=== PATIENT | female | born 1955 | race African-American/Black ===

== ENCOUNTER → 2018-06-23 | Outpatient (CLI) | payer MEDICARE, MEDICAID ==
[~2018-06-23] MED LIST: ALPR0.25 PO; AMLODIPINE PO; DIPH1TAB PO; HYDR2TAB4 PO; MORP15TA67 PO; MORP30TA66 PO; MOUTHWASH PO; OMEP20CA10 PO; ONDA8TAB6 PO; PROC10TA13 PO; RANI150T7 PO; VITAMIN D2 PO; ZOLP10TA6 PO; ZOLPIDEM PO; [UNRECOGNIZED DRUG - OTHER] PO
== END | disposition home or self-care (01) ==
LOC: RAD 12:25
PROVIDERS: ATTEND Specialist
DX: I26.99 Other pulmonary embolism without acute cor pulmonale (principal)
CPT/HCPCS: 71046

== ENCOUNTER → 2019-06-13 | Outpatient (CLI) | payer MEDICARE, MEDICAID ==
[~2019-06-13] MED LIST changes: -OMEP20CA10 PO; +OMEP20CA5 PO
== END | disposition home or self-care (01) ==
LOC: RAD 10:15
PROVIDERS: ATTEND Specialist
DX: J44.9 Chronic obstructive pulmonary disease, unspecified (principal); M48.54XA Collapsed vertebra, not elsewhere classified, thoracic region, initial encounter for fracture
CPT/HCPCS: 71046

== ENCOUNTER 2019-10-26 06:45 | Inpatient (IN) | payer MEDICARE, MEDICAID ==
[~2019-10-26] VITALS: Ht 160 cm; Wt 65.3 kg
[2019-10-26] VITALS (30 sets, daily range): BP systolic 110–147; BP diastolic 59–91
[~2019-10-26 06:45] MED LIST changes: +OMEP20CA14 PO; -OMEP20CA5 PO
[2019-10-26 07:11] LABS: BASOPHILS % 1.2 % (0.0-2.0); EOSINOPHILS % 1.1 % (0.0-5.0); HEMATOCRIT. 37.9 % (36.0-48.0); HEMOGLOBIN. 12.8 g/dL (12.0-16.0); LYMPHOCYTES % 34.3 % (20.0-50.0); MEAN CORPUSCULAR HEMOGLOBIN 35.7 pg (28.0-32.0); MEAN CORPUSCULAR VOLUME 106.2 fL (81.0-99.0); MEAN PLATELET VOLUME 8.6 fl (7.4-10.4); MONOCYTES % 8.2 % (2.0-8.0); NEUTROPHILS % 55.2 % (40.0-76.0); PLATELET 250 x1000/uL (130-400); RED BLOOD CELL COUNT 3.57 mill/uL (4.2-5.4); RED CELL DISTRIBUTION WIDTH 16.2 % (11.6-14.6)
[2019-10-26] MEDS ORDERED: DILTIAZEM HCL 125 MG in DEXT 5% WATER 100 ML IV ONE (07:30)
[2019-10-26] MEDS ORDERED: FUROSEMIDE 40MG/4ML VIAL IV ONE (07:30)
[2019-10-26] MEDS ORDERED: DILTIAZEM HCL 5MG/ML 5ML VIAL IV ONE (07:30)
[2019-10-26 08:11] LABS: CHLORIDE 112 mEq/L (98-107)
[2019-10-26] MEDS ORDERED: ASPIRIN 81MG TABLET PO ONE (09:00)
[2019-10-26] MEDS ORDERED: DIPHENHYDRAMINE 50MG/ML VIAL IV PRN (10:45)
[2019-10-26] MEDS ORDERED: ENOXAPARIN 40MG/0.4ML SYR SUBCUT SCH (10:45)
[2019-10-26] MEDS ORDERED: ONDANSETRON HCL 4MG/2ML INJ IV PRN (10:45)
[2019-10-26] MEDS ORDERED: IPRATROPIUM/ALBUTEROL 0.5-3(2.5)MG/3ML NEB NEB PRN (10:45)
[2019-10-26] MEDS ORDERED: HYDROCODONE/ACETAMINOPHEN 10/325MG TABLET PO PRN (10:45)
[2019-10-26] MEDS ORDERED: NA PHOS,M-B/NA PHOS,DI-BA ENEMA 118ML PR PRN (10:45)
[2019-10-26] MEDS ORDERED: DOCUSATE SODIUM 100MG CAPSULE PO PRN (10:45)
[2019-10-26] MEDS ORDERED: LORAZEPAM 2MG/ML CPJ IV PRN ×2 (10:45→13:15)
[2019-10-26] MEDS ORDERED: GUAIFENESIN 200MG/10ML SUGAR FREE UDC PO PRN (10:45)
[2019-10-26] MEDS ORDERED: MORPHINE SULFATE 2 MG/ML CPJ (NOT FOR IM USE) IV PRN (10:45)
[2019-10-26] MEDS ORDERED: CLONIDINE 0.1MG TABLET PO PRN (10:45)
[2019-10-26] MEDS ORDERED: HYDRALAZINE 20MG/ML VIAL IV PRN (10:45)
[2019-10-26] MEDS ORDERED: ACETAMINOPHEN 325MG TABLET PO PRN (10:45)
[2019-10-26] MEDS ORDERED: MAGNESIUM/ALUMINUM HYDROXIDE/SIMETHICONE 30ML UDC PO PRN (10:45)
[2019-10-26] MEDS: FUROSEMIDE 40MG/4ML VIAL IVP SCH ×2 (11:51→17:00)
[2019-10-26] MEDS: ENOXAPARIN 30MG/0.3ML SYR SUBCUT SCH (11:51)
[2019-10-26] MEDS: THIAMINE HCL 100MG TABLET PO SCH (13:30)
[2019-10-26] MEDS: SODIUM CHLORIDE 0.9% INJ 3ML FLUSH IVF SCH ×2 (14:36→22:24)
[2019-10-26] MEDS: MULTIVITAMINS,THER W-MINERALS TABLET PO SCH (14:44)
[2019-10-26] MEDS: FOLIC ACID 1MG TABLET PO SCH (14:44)
[2019-10-26] MEDS: CHLORDIAZEPOXIDE 5 MG CAPSULE PO SCH ×2 (14:44→22:24)
[2019-10-26] MEDS: NICOTINE 21MG PATCH TD SCH (14:45)
[2019-10-26] MEDS ORDERED: PNEUMOCOCCAL 23-VAL P-SAC VAC 0.5 ML IM ONE (15:45)
[2019-10-26 15:55] LABS: CREATINE KINASE MB FRACTION 3.1 ng/mL (0.5-3.6)
[2019-10-26 16:33] LABS: CLARITY URINE CLEAR (CLEAR); COLOR URINE YELLOW (YELLOW); KETONES URINE NEGATIVE (NEGATIVE); LEUKOCYTE ESTERASE URINE NEGATIVE (NEGATIVE); NITRITE URINE NEGATIVE (NEGATIVE); OCCULT BLOOD URINE NEGATIVE (NEGATIVE); PROTEIN URINE NEGATIVE (NEGATIVE); SPECIFIC GRAVITY URINE 1.006 (1.005-1.030); UROBILINOGEN URINE 0.2 E.U./dL (0.2-1.0)
[2019-10-26] MEDS: IPRATROPIUM BROMIDE (0.02%) 0.5MG/2.5ML NEB HHN SCH ×2 (17:14→21:34)
[2019-10-26] MEDS: ATORVASTATIN CALCIUM 40MG TABLET PO SCH (21:13)
[2019-10-26] MEDS: CARVEDILOL 6.25 MG TABLET PO SCH (21:16)
[2019-10-26] MEDS: BUDESONIDE 0.5MG/2ML NEB HHN SCH (21:33)
[2019-10-26] MEDS: DILTIAZEM HCL 30MG TABLET PO SCH (22:24)
[2019-10-27] VITALS (25 sets, daily range): BP systolic 91–117; BP diastolic 54–78
[2019-10-27] LABS: CREATINE KINASE MB FRACTION 2.2 ng/mL (0.5-3.6)
[2019-10-27] MEDS: IPRATROPIUM BROMIDE (0.02%) 0.5MG/2.5ML NEB HHN SCH ×6 (00:50→20:47)
[2019-10-27] MEDS: SODIUM CHLORIDE 0.9% INJ 3ML FLUSH IVF SCH ×3 (05:59→22:17)
[2019-10-27] MEDS: DILTIAZEM HCL 30MG TABLET PO SCH ×3 (06:00→22:00)
[2019-10-27] MEDS: CHLORDIAZEPOXIDE 5 MG CAPSULE PO SCH ×3 (06:02→22:41)
[2019-10-27 06:08] LABS: CHLORIDE 108 mEq/L (98-107)
[2019-10-27 06:11] LABS: BASOPHILS % 0.5 % (0.0-2.0); EOSINOPHILS % 0.5 % (0.0-5.0); HEMATOCRIT. 33.9 % (36.0-48.0); HEMOGLOBIN. 11.6 g/dL (12.0-16.0); LYMPHOCYTES % 21.9 % (20.0-50.0); MEAN CORPUSCULAR HEMOGLOBIN 35.6 pg (28.0-32.0); MEAN CORPUSCULAR VOLUME 104.1 fL (81.0-99.0); MEAN PLATELET VOLUME 8.8 fl (7.4-10.4); MONOCYTES % 10.5 % (2.0-8.0); NEUTROPHILS % 66.6 % (40.0-76.0); PLATELET 209 x1000/uL (130-400); RED BLOOD CELL COUNT 3.25 mill/uL (4.2-5.4); RED CELL DISTRIBUTION WIDTH 15.9 % (11.6-14.6)
[2019-10-27] MEDS: ENOXAPARIN 30MG/0.3ML SYR SUBCUT SCH (08:16)
[2019-10-27] MEDS: FUROSEMIDE 40MG/4ML VIAL IVP SCH ×2 (08:16→17:37)
[2019-10-27] MEDS: THIAMINE HCL 100MG TABLET PO SCH (08:16)
[2019-10-27] MEDS: MULTIVITAMINS,THER W-MINERALS TABLET PO SCH (08:16)
[2019-10-27] MEDS: FOLIC ACID 1MG TABLET PO SCH (08:16)
[2019-10-27] MEDS: ASPIRIN 81MG EC TABLET PO SCH (08:17)
[2019-10-27] MEDS: NICOTINE 21MG PATCH TD SCH (08:17)
[2019-10-27] MEDS: CARVEDILOL 6.25 MG TABLET PO SCH ×2 (08:17→21:43)
[2019-10-27] MEDS: BUDESONIDE 0.5MG/2ML NEB HHN SCH ×2 (08:24→20:47)
[2019-10-27] MEDS ORDERED: POTASSIUM CHLORIDE 20MEQ TABLET SR PO NR (11:00)
[2019-10-27] MEDS: ATORVASTATIN CALCIUM 40MG TABLET PO SCH (21:43)
[2019-10-28] VITALS (27 sets, daily range): BP systolic 93–160; BP diastolic 37–82
[2019-10-28] MEDS: IPRATROPIUM BROMIDE (0.02%) 0.5MG/2.5ML NEB HHN SCH ×6 (00:38→20:31)
[2019-10-28 05:01] LABS: BASOPHILS % 0.5 % (0.0-2.0); EOSINOPHILS % 1.2 % (0.0-5.0); HEMATOCRIT. 33.7 % (36.0-48.0); HEMOGLOBIN. 11.5 g/dL (12.0-16.0); LYMPHOCYTES % 26.2 % (20.0-50.0); MEAN CORPUSCULAR HEMOGLOBIN 35.8 pg (28.0-32.0); MEAN CORPUSCULAR VOLUME 104.7 fL (81.0-99.0); MEAN PLATELET VOLUME 8.9 fl (7.4-10.4); MONOCYTES % 11.9 % (2.0-8.0); NEUTROPHILS % 60.2 % (40.0-76.0); PLATELET 199 x1000/uL (130-400); RED BLOOD CELL COUNT 3.22 mill/uL (4.2-5.4)
[2019-10-28] MEDS: SODIUM CHLORIDE 0.9% INJ 3ML FLUSH IVF SCH ×3 (05:58→20:47)
[2019-10-28] MEDS: CHLORDIAZEPOXIDE 5 MG CAPSULE PO SCH ×3 (06:03→21:20)
[2019-10-28] MEDS: DILTIAZEM HCL 30MG TABLET PO SCH ×3 (06:04→21:21)
[2019-10-28] MEDS: CARVEDILOL 6.25 MG TABLET PO SCH ×2 (09:00→20:49)
[2019-10-28] MEDS: BUDESONIDE 0.5MG/2ML NEB HHN SCH ×2 (09:02→20:31)
[2019-10-28] MEDS: FUROSEMIDE 40MG/4ML VIAL IVP SCH (09:38)
[2019-10-28] MEDS: MULTIVITAMINS,THER W-MINERALS TABLET PO SCH (09:39)
[2019-10-28] MEDS: THIAMINE HCL 100MG TABLET PO SCH (09:39)
[2019-10-28] MEDS: ASPIRIN 81MG EC TABLET PO SCH (09:39)
[2019-10-28] MEDS: FOLIC ACID 1MG TABLET PO SCH (09:39)
[2019-10-28] MEDS: ENOXAPARIN 30MG/0.3ML SYR SUBCUT SCH (09:40)
[2019-10-28] MEDS: NICOTINE 21MG PATCH TD SCH (09:41)
[2019-10-28] MEDS ORDERED: DIPHENOXYLATE/ATROPINE 2.5/0.025MG TABLET PO PRN (11:30)
[2019-10-28] MEDS ORDERED: PROCHLORPERAZINE MALEATE 10MG TABLET PO PRN (11:30)
[2019-10-28] MEDS ORDERED: AMLODIPINE 5 MG PO SCH (11:30)
[2019-10-28] MEDS: OMEPRAZOLE 20MG CAPSULE EXTENDED RELEASE PO SCH (12:14)
[2019-10-28] MEDS: FUROSEMIDE 40MG TABLET PO SCH (17:16)
[2019-10-28] MEDS: ATORVASTATIN CALCIUM 40MG TABLET PO SCH (20:46)
[2019-10-28] MEDS ORDERED: ZOLPIDEM TARTRATE 5MG TABLET PO PRN (21:00)
[2019-10-28] MEDS ORDERED: ZOLPIDEM PO SCH (21:00)
[2019-10-28] MEDS ORDERED: MAGNESIUM 2 G PREMIX 50 ML IV SCH (23:00)
[2019-10-29] MEDS: IPRATROPIUM BROMIDE (0.02%) 0.5MG/2.5ML NEB HHN SCH ×6 (00:54→21:25)
[2019-10-29 04:00] VITALS: BP 107/60
[2019-10-29] MEDS: SODIUM CHLORIDE 0.9% INJ 3ML FLUSH IVF SCH (05:21)
[2019-10-29] MEDS: CHLORDIAZEPOXIDE 5 MG CAPSULE PO SCH ×3 (05:21→21:12)
[2019-10-29] MEDS: DILTIAZEM HCL 30MG TABLET PO SCH ×3 (05:23→21:13)
[2019-10-29 06:03] LABS: BASOPHILS % 0.6 % (0.0-2.0); HEMATOCRIT. 32.8 % (36.0-48.0); HEMOGLOBIN. 11.1 g/dL (12.0-16.0); LYMPHOCYTES % 25.5 % (20.0-50.0); MEAN CORPUSCULAR HEMOGLOBIN 35.8 pg (28.0-32.0); MEAN CORPUSCULAR VOLUME 105.6 fL (81.0-99.0); MEAN PLATELET VOLUME 9.3 fl (7.4-10.4); NEUTROPHILS % 61.9 % (40.0-76.0); PLATELET 225 x1000/uL (130-400); RED BLOOD CELL COUNT 3.11 mill/uL (4.2-5.4); RED CELL DISTRIBUTION WIDTH 16.1 % (11.6-14.6)
[2019-10-29 08:00] VITALS: BP 116/66
[2019-10-29] MEDS: FUROSEMIDE 40MG TABLET PO SCH ×2 (08:36→18:19)
[2019-10-29] MEDS: OMEPRAZOLE 20MG CAPSULE EXTENDED RELEASE PO SCH (08:38)
[2019-10-29] MEDS: ASPIRIN 81MG EC TABLET PO SCH (08:38)
[2019-10-29] MEDS: MULTIVITAMINS,THER W-MINERALS TABLET PO SCH (08:38)
[2019-10-29] MEDS: ENOXAPARIN 30MG/0.3ML SYR SUBCUT SCH (08:38)
[2019-10-29] MEDS: CARVEDILOL 6.25 MG TABLET PO SCH ×2 (08:39→21:12)
[2019-10-29] MEDS: THIAMINE HCL 100MG TABLET PO SCH (08:40)
[2019-10-29] MEDS: NICOTINE 21MG PATCH TD SCH (08:40)
[2019-10-29] MEDS: FOLIC ACID 1MG TABLET PO SCH (08:58)
[2019-10-29] MEDS: BUDESONIDE 0.5MG/2ML NEB HHN SCH ×2 (09:46→21:25)
[2019-10-29 12:00] VITALS: BP 103/57
[2019-10-29] MEDS ORDERED: MAGNESIUM 2 G PREMIX 50 ML IV SCH (15:00)
[2019-10-29 16:00] VITALS: BP 98/60
[2019-10-29 18:46] VITALS: BP_SYST 110; BP_SYST 98; BP_DIAS 60; BP_DIAS 62
[2019-10-29 20:00] VITALS: BP 110/62
[2019-10-29] MEDS: ATORVASTATIN CALCIUM 40MG TABLET PO SCH (21:12)
[2019-10-30 15:11] LABS: ANTI-NUCLEAR ANTIBODIES DIRECT Positive (Negative)
== END 2019-10-29 22:20 | DRG 682 ==
LOC: ER 06:45 → CVICU 07:42 → EDBEDREQ 07:51 → EDBEDREQTM 07:51 → EDBEDREQSVC 07:51 → ENRESERV 08:12 → 7WST 10-28 22:48
PROVIDERS: ADMIT Internal Medicine; ATTEND Internal Medicine
PROC: 5A09357 Assistance with Respiratory Ventilation, Less than 24 Consecutive Hours, Continuous Positive Airway Pressure (ICD-10-PCS; principal; 2019-10-26)
PROC: 5A09357 Assistance with Respiratory Ventilation, Less than 24 Consecutive Hours, Continuous Positive Airway Pressure (ICD-10-PCS; 2019-10-26)
DX: N17.0 Acute kidney failure with tubular necrosis (principal); J96.00 Acute respiratory failure, unspecified whether with hypoxia or hypercapnia; I50.43 Acute on chronic combined systolic (congestive) and diastolic (congestive) heart failure; I13.0 Hypertensive heart and chronic kidney disease with heart failure and stage 1 through stage 4 chronic kidney disease, or unspecified chronic kidney disease; I47.1 Supraventricular tachycardia; J44.1 Chronic obstructive pulmonary disease with (acute) exacerbation; I48.92 Unspecified atrial flutter; I42.9 Cardiomyopathy, unspecified; N18.3 Chronic kidney disease, stage 3 (moderate); E78.5 Hyperlipidemia, unspecified; F41.9 Anxiety disorder, unspecified; K58.9 Irritable bowel syndrome, unspecified; G89.4 Chronic pain syndrome; F17.210 Nicotine dependence, cigarettes, uncomplicated; I44.7 Left bundle-branch block, unspecified; I48.91 Unspecified atrial fibrillation; W18.39XA Other fall on same level, initial encounter; I25.10 Atherosclerotic heart disease of native coronary artery without angina pectoris; K21.9 Gastro-esophageal reflux disease without esophagitis; Z92.21 Personal history of antineoplastic chemotherapy; Z92.3 Personal history of irradiation; Z85.819 Personal history of malignant neoplasm of unspecified site of lip, oral cavity, and pharynx; Z85.01 Personal history of malignant neoplasm of esophagus; Z87.11 Personal history of peptic ulcer disease; Z79.899 Other long term (current) drug therapy; Z82.49 Family history of ischemic heart disease and other diseases of the circulatory system; Y93.89 Activity, other specified; Y92.89 Other specified places as the place of occurrence of the external cause; Y99.8 Other external cause status
CPT/HCPCS: 36415; 71045; 73610; 76770; 78580; 80048; 80053; 81003; 82550; 82553; 83735; 83880; 84484; 85025; 86038; 86160; 90732; 93005; 93306; 93970; 94640; 94660; 96365; 97162; 99291; J1650; J1940; J3475; J3490; J7060; J7626

== ENCOUNTER 2020-01-28 06:55 | Inpatient (IN) | payer MEDICARE, MEDICAID ==
[~2020-01-28] VITALS: Ht 157.5 cm; Wt 57.3 kg
[2020-01-28] MEDS ORDERED: PROPOFOL 10MG/ML 100ML 100 ML IV ONE ×2 (07:20→07:30)
[2020-01-28] MEDS ORDERED: METHYLPREDNISOLONE SOD SUCC 125 MG/2 ML VIAL IV STA (07:26)
[2020-01-28] MEDS ORDERED: IPRATROPIUM BROMIDE (0.02%) 0.5MG/2.5ML NEB HHN STA (07:26)
[2020-01-28] MEDS ORDERED: ALBUTEROL (0.083%) 2.5MG/3ML NEB HHN STA (07:26)
[2020-01-28] MEDS ORDERED: MAGNESIUM 2 G PREMIX 50 ML IV ONE (07:30)
[2020-01-28] MEDS ORDERED: ETOMIDATE 2MG/ML 10ML VIAL IV ONE (07:30)
[2020-01-28] MEDS ORDERED: PROPOFOL 200MG/20ML VIAL IV ONE (07:30)
[2020-01-28] MEDS ORDERED: VECURONIUM BROMIDE 10 MG/VIAL IV ONE (07:30)
[2020-01-28 07:48] LABS: BASOPHILS % 1.2 % (0.0-2.0); EOSINOPHILS % 0.6 % (0.0-5.0); HEMATOCRIT. 39.7 % (36.0-48.0); HEMOGLOBIN. 12.8 g/dL (12.0-16.0); LYMPHOCYTES % 50.2 % (20.0-50.0); MEAN CORPUSCULAR HEMOGLOBIN 32.3 pg (28.0-32.0); MEAN PLATELET VOLUME 9.8 fl (7.4-10.4); MONOCYTES % 5.8 % (2.0-8.0); NEUTROPHILS % 42.2 % (40.0-76.0); PLATELET 227 x1000/uL (130-400); RED BLOOD CELL COUNT 3.97 mill/uL (4.2-5.4); RED CELL DISTRIBUTION WIDTH 19.6 % (11.6-14.6)
[2020-01-28 07:55] LABS: CHLORIDE 113 mEq/L (98-107)
[2020-01-28 07:58] LABS: PARTIAL THROMBOPLASTIN TIME 23.9 sec (23.4-31.0); PROTHROMBIN TIME 11.3 sec (9.6-11.0)
[2020-01-28 08:00] LABS: ETHANOL BLOOD < 10 mg/dL
[2020-01-28] MEDS ORDERED: VANCOMYCIN 1 G PREMIX 200 ML IV ONE (09:15)
[2020-01-28] MEDS ORDERED: PIPERACILLIN/TAZ 3.375G PREMIX 50 ML IV ONE (09:15)
[2020-01-28 09:32] LABS: BG CARBOXYHEMOGLOBIN 0.1 % (0.5-1.5); BG DEOXYHEMOGLOBIN 4.9 % (0.0-5.0); BG FRACTION INSPIRED OXYGEN 100; BG HCO3 ACT 18.1 mmol/L (22.0-26.0); BG METHEMOGLOBIN 0.3 % (0.0-1.5); BG OXYGEN SATURATION 95.1 % (92.0-98.5); BG OXYHEMOGLOBIN 94.7 % (94.0-97.0); BG PCO2 59.5 mmHg (35.0-45.0); BG PH 7.101 (7.350-7.450); BG PO2 104.1 mmHg (75.0-100.0); BG SAMPLE SITE LEFT RADIAL; BG TIDAL VOLUME(mL) 500 mL; BG TOTAL HEMOGLOBIN 13.4 g/dL (12.0-18.0); BG VENT MODE VENT - A/C; BG VENT RATE 16 set
[2020-01-28] MEDS ORDERED: CLONIDINE 0.1MG TABLET PO PRN (10:45)
[2020-01-28] MEDS ORDERED: PIPERACILLIN/TAZ 3.375G PREMIX 50 ML IV SCH (10:45)
[2020-01-28] MEDS ORDERED: HYDRALAZINE 20MG/ML VIAL IV PRN (10:45)
[2020-01-28] MEDS ORDERED: MAGNESIUM/ALUMINUM HYDROXIDE/SIMETHICONE 30ML UDC PO PRN (10:45)
[2020-01-28] MEDS ORDERED: DOCUSATE SODIUM 100MG CAPSULE PO PRN (10:45)
[2020-01-28] MEDS ORDERED: MORPHINE SULFATE 2 MG/ML CPJ (NOT FOR IM USE) IV PRN (10:45)
[2020-01-28] MEDS ORDERED: HYDROCODONE/ACETAMINOPHEN 10/325MG TABLET PO PRN (10:45)
[2020-01-28] MEDS ORDERED: LORAZEPAM 2MG/ML CPJ IV PRN (10:45)
[2020-01-28] MEDS ORDERED: ENOXAPARIN 30MG/0.3ML SYR SUBCUT SCH (11:00)
[2020-01-28] MEDS ORDERED: DILTIAZEM HCL 125 MG in DEXT 5% WATER 100 ML IV PRN (11:30)
[2020-01-28] MEDS: SODIUM CHLORIDE 0.9% INJ 3ML FLUSH IVF SCH (14:00)
[2020-01-28 14:55] LABS: CREATINE KINASE MB FRACTION 4.7 ng/mL (0.5-3.6)
[2020-01-28] MEDS ORDERED: MILRINONE 20MG-DEXT 5% PREMIX 100 ML IV SCH (16:00)
[2020-01-28] MEDS ORDERED: FUROSEMIDE 40MG/4ML VIAL IVP SCH (16:00)
[2020-01-28] MEDS: MIDAZOLAM HCL 100 MG in DEXT 5% WATER 80 ML IV PRN (17:03)
[2020-01-28] MEDS: ENOXAPARIN 60MG/0.6ML SYR SUBCUT SCH (17:09)
[2020-01-28] MEDS ORDERED: PHENYLEPHRINE 10 MG in DEXT 5% WATER 249 ML IV PRN (19:15)
[2020-01-28] MEDS ORDERED: PIPERACILLIN/TAZOBACTAM 2.25 G in DEXTROSE 5% WATER 50 ML IV SCH (19:30)
[2020-01-28 21:35] LABS: BG BASE EXCESS -15.1 mmol/L (-2.0-2.0); BG CARBOXYHEMOGLOBIN 0.3 % (0.5-1.5); BG DEOXYHEMOGLOBIN 0.4 % (0.0-5.0); BG FRACTION INSPIRED OXYGEN 100; BG HCO3 ACT 12.6 mmol/L (22.0-26.0); BG METHEMOGLOBIN 0.4 % (0.0-1.5); BG OXYGEN SATURATION 99.6 % (92.0-98.5); BG OXYHEMOGLOBIN 98.9 % (94.0-97.0); BG PCO2 35.8 mmHg (35.0-45.0); BG PH 7.163 (7.350-7.450); BG PO2 360.7 mmHg (75.0-100.0); BG SAMPLE SITE LEFT RADIAL; BG TIDAL VOLUME(mL) 500 mL; BG TOTAL HEMOGLOBIN 13.4 g/dL (12.0-18.0); BG VENT MODE VENT - A/C; BG VENT RATE 20 set
[2020-01-28] MEDS ORDERED: SODIUM BICARBONATE 8.4% 1 MEQ/ML 50ML SYR IV ONE (23:00)
[2020-01-29] VITALS (57 sets, daily range): BP systolic 74–140; BP diastolic 50–80
[2020-01-29] MEDS: PANTOPRAZOLE SODIUM 40 MG/VIAL IV SCH ×2 (00:36→21:16)
[2020-01-29 05:07] LABS: HEMATOCRIT. 36.5 % (36.0-48.0); HEMOGLOBIN. 11.9 g/dL (12.0-16.0); MEAN CORPUSCULAR HEMOGLOBIN 32.5 pg (28.0-32.0); MEAN CORPUSCULAR VOLUME 99.6 fL (81.0-99.0); MEAN PLATELET VOLUME 9.7 fl (7.4-10.4); PLATELET 205 x1000/uL (130-400); RED BLOOD CELL COUNT 3.66 mill/uL (4.2-5.4); RED CELL DISTRIBUTION WIDTH 18.9 % (11.6-14.6)
[2020-01-29 05:13] LABS: CHLORIDE 111 mEq/L (98-107)
[2020-01-29 05:23] LABS: CREATINE KINASE 175 IU/L (26-192); CREATINE KINASE MB FRACTION 3.8 ng/mL (0.5-3.6)
[2020-01-29] MEDS ORDERED: SODIUM POLYSTYRENE SULFONATE 15 G/60 ML BOT NG ONE (06:15)
[2020-01-29] MEDS ORDERED: SODIUM BICARBONATE 8.4% 1 MEQ/ML 50ML SYR IV SCH (06:30)
[2020-01-29] MEDS ORDERED: SODIUM POLYSTYRENE SULFONATE 15 G/60 ML BOT PO SCH (06:30)
[2020-01-29 07:51] LABS: PLATELET ESTIMATE NORMAL
[2020-01-29] MEDS: SODIUM BICARBONATE 100 MEQ in DEXTROSE 5% WATER 1,000 ML IV SCH ×2 (08:14→21:16)
[2020-01-29] MEDS: PIPERACILLIN/TAZOBACTAM 2.25 G in DEXTROSE 5% WATER 50 ML IV SCH ×3 (08:15→23:27)
[2020-01-29 08:33] LABS: BG BASE EXCESS -9.8 mmol/L (-2.0-2.0); BG CARBOXYHEMOGLOBIN 0.3 % (0.5-1.5); BG DEOXYHEMOGLOBIN 0.5 % (0.0-5.0); BG FRACTION INSPIRED OXYGEN 70; BG HCO3 ACT 16.2 mmol/L (22.0-26.0); BG METHEMOGLOBIN 0.5 % (0.0-1.5); BG OXYGEN SATURATION 99.5 % (92.0-98.5); BG OXYHEMOGLOBIN 98.7 % (94.0-97.0); BG PH 7.272 (7.350-7.450); BG PO2 274.7 mmHg (75.0-100.0); BG SAMPLE SITE RIGHT RADIAL; BG TIDAL VOLUME(mL) 500 mL; BG TOTAL HEMOGLOBIN 12.4 g/dL (12.0-18.0); BG VENT MODE VENT - A/C; BG VENT RATE 20 set
[2020-01-29] MEDS: FENTANYL CITRATE/PF 1,000 MCG in SODIUM CHLORIDE 0.9% 80 ML IV PRN (11:18)
[2020-01-29] MEDS: FUROSEMIDE 40MG/4ML VIAL IVP SCH (12:30)
[2020-01-29] MEDS: ENOXAPARIN 60MG/0.6ML SYR SUBCUT SCH (12:30)
[2020-01-29] MEDS: MIDAZOLAM HCL 100 MG in DEXT 5% WATER 80 ML IV PRN (13:17)
[2020-01-29] MEDS ORDERED: PHENYLEPHRINE 80 MG in DEXT 5% WATER 500 ML IV PRN (14:16)
[2020-01-29] MEDS: SODIUM CHLORIDE 0.9% INJ 3ML FLUSH IVF SCH ×2 (14:41→21:01)
[2020-01-29] MEDS: PHENYLEPHRINE 80 MG in DEXT 5% WATER 492 ML IV PRN (15:22)
[2020-01-29] MEDS: METOPROLOL TARTRATE 25MG TABLET NG SCH (21:00)
[2020-01-30] VITALS (94 sets, daily range): BP systolic 88–154; BP diastolic 38–83
[2020-01-30] MEDS: MIDAZOLAM HCL 100 MG in DEXT 5% WATER 80 ML IV PRN ×2 (01:36→14:57)
[2020-01-30] MEDS: PHENYLEPHRINE 80 MG in DEXT 5% WATER 492 ML IV PRN ×2 (03:38→15:16)
[2020-01-30] MEDS: SODIUM CHLORIDE 0.9% INJ 3ML FLUSH IVF SCH ×3 (05:29→22:28)
[2020-01-30 05:51] LABS: HEMATOCRIT. 35.9 % (36.0-48.0); MEAN CORPUSCULAR HEMOGLOBIN 31.6 pg (28.0-32.0); MEAN CORPUSCULAR VOLUME 94.8 fL (81.0-99.0); MEAN PLATELET VOLUME 10.8 fl (7.4-10.4); PLATELET 146 x1000/uL (130-400); RED BLOOD CELL COUNT 3.79 mill/uL (4.2-5.4); RED CELL DISTRIBUTION WIDTH 18.4 % (11.6-14.6)
[2020-01-30] MEDS ORDERED: POTASSIUM CHLORIDE 20MEQ/PACKET PO SCH (07:00)
[2020-01-30] MEDS ORDERED: DEXT 5%/0.45% NACL 1000ML 1,000 ML IV SCH (08:00)
[2020-01-30] MEDS: METOPROLOL TARTRATE 25MG TABLET NG SCH ×2 (08:35→20:03)
[2020-01-30] MEDS: PIPERACILLIN/TAZOBACTAM 2.25 G in DEXTROSE 5% WATER 50 ML IV SCH ×2 (08:35→15:35)
[2020-01-30] MEDS: FUROSEMIDE 40MG/4ML VIAL IVP SCH (08:49)
[2020-01-30 08:53] LABS: PLATELET ESTIMATE NORMAL
[2020-01-30 09:45] LABS: BG BASE EXCESS 4.5 mmol/L (-2.0-2.0); BG CARBOXYHEMOGLOBIN 0.3 % (0.5-1.5); BG DEOXYHEMOGLOBIN 1.8 % (0.0-5.0); BG FRACTION INSPIRED OXYGEN 40; BG METHEMOGLOBIN 0.3 % (0.0-1.5); BG OXYGEN SATURATION 98.2 % (92.0-98.5); BG OXYHEMOGLOBIN 97.6 % (94.0-97.0); BG PCO2 29.4 mmHg (35.0-45.0); BG PH 7.565 (7.350-7.450); BG PO2 116.8 mmHg (75.0-100.0); BG SAMPLE SITE RIGHT RADIAL; BG TIDAL VOLUME(mL) 500 mL; BG TOTAL HEMOGLOBIN 12.4 g/dL (12.0-18.0); BG VENT MODE VENT - A/C; BG VENT RATE 24 set
[2020-01-30] MEDS: ENOXAPARIN 60MG/0.6ML SYR SUBCUT SCH (12:44)
[2020-01-30] MEDS: FENTANYL CITRATE/PF 1,000 MCG in SODIUM CHLORIDE 0.9% 80 ML IV PRN (15:13)
[2020-01-30] MEDS: PANTOPRAZOLE SODIUM 40 MG/VIAL IV SCH (20:10)
[2020-01-31] VITALS (93 sets, daily range): BP systolic 79–161; BP diastolic 45–81
[2020-01-31] MEDS: PIPERACILLIN/TAZOBACTAM 2.25 G in DEXTROSE 5% WATER 50 ML IV SCH ×3 (00:49→16:22)
[2020-01-31] MEDS: PHENYLEPHRINE 80 MG in DEXT 5% WATER 492 ML IV PRN ×2 (02:39→13:34)
[2020-01-31 05:56] LABS: BASOPHILS % 0.3 % (0.0-2.0); EOSINOPHILS % 0.3 % (0.0-5.0); HEMATOCRIT. 38.8 % (36.0-48.0); HEMOGLOBIN. 13.2 g/dL (12.0-16.0); LYMPHOCYTES % 10.8 % (20.0-50.0); MEAN CORPUSCULAR HEMOGLOBIN 32.8 pg (28.0-32.0); MEAN CORPUSCULAR VOLUME 96.2 fL (81.0-99.0); MEAN PLATELET VOLUME 10.1 fl (7.4-10.4); MONOCYTES % 3.7 % (2.0-8.0); NEUTROPHILS % 84.9 % (40.0-76.0); PLATELET 131 x1000/uL (130-400); RED BLOOD CELL COUNT 4.03 mill/uL (4.2-5.4); RED CELL DISTRIBUTION WIDTH 18.4 % (11.6-14.6)
[2020-01-31] MEDS: SODIUM CHLORIDE 0.9% INJ 3ML FLUSH IVF SCH ×3 (06:01→22:00)
[2020-01-31 06:12] LABS: PHOSPHORUS 4.3 mg/dL (2.5-4.9)
[2020-01-31] MEDS: METOPROLOL TARTRATE 25MG TABLET NG SCH ×3 (08:06→21:00)
[2020-01-31] MEDS: FUROSEMIDE 40MG/4ML VIAL IVP SCH (08:15)
[2020-01-31 09:46] LABS: BG BASE EXCESS 3.2 mmol/L (-2.0-2.0); BG CARBOXYHEMOGLOBIN 0.2 % (0.5-1.5); BG DEOXYHEMOGLOBIN 2.1 % (0.0-5.0); BG FRACTION INSPIRED OXYGEN 40; BG HCO3 ACT 27.1 mmol/L (22.0-26.0); BG METHEMOGLOBIN 0.5 % (0.0-1.5); BG OXYGEN SATURATION 97.9 % (92.0-98.5); BG OXYHEMOGLOBIN 97.2 % (94.0-97.0); BG PO2 112.6 mmHg (75.0-100.0); BG SAMPLE SITE RIGHT RADIAL; BG TIDAL VOLUME(mL) 500 mL; BG TOTAL HEMOGLOBIN 13.2 g/dL (12.0-18.0); BG VENT MODE VENT - A/C; BG VENT RATE 18 set
[2020-01-31] MEDS ORDERED: POTASSIUM CHLORIDE 20MEQ/PACKET PO NR (10:15)
[2020-01-31] MEDS: ENOXAPARIN 60MG/0.6ML SYR SUBCUT SCH (11:24)
[2020-01-31] MEDS ORDERED: VANCOMYCIN 750 MG PREMIX 150 ML IV SCH (11:30)
[2020-01-31] MEDS: ACETAMINOPHEN 325MG TABLET PO PRN (16:23)
[2020-01-31] MEDS: PANTOPRAZOLE SODIUM 40 MG/VIAL IV SCH (20:34)
[2020-02-01] VITALS (92 sets, daily range): BP systolic 77–143; BP diastolic 46–87
[2020-02-01] MEDS: PHENYLEPHRINE 80 MG in DEXT 5% WATER 492 ML IV PRN ×3 (00:12→17:46)
[2020-02-01] MEDS: PIPERACILLIN/TAZOBACTAM 2.25 G in DEXTROSE 5% WATER 50 ML IV SCH ×3 (00:12→16:48)
[2020-02-01 06:06] LABS: BASOPHILS % 0.2 % (0.0-2.0); EOSINOPHILS % 1.3 % (0.0-5.0); HEMATOCRIT. 42.5 % (36.0-48.0); HEMOGLOBIN. 14.3 g/dL (12.0-16.0); LYMPHOCYTES % 13.3 % (20.0-50.0); MEAN CORPUSCULAR HEMOGLOBIN 32.4 pg (28.0-32.0); MEAN CORPUSCULAR VOLUME 96.6 fL (81.0-99.0); MONOCYTES % 8.2 % (2.0-8.0); PLATELET 156 x1000/uL (130-400); RED CELL DISTRIBUTION WIDTH 18.6 % (11.6-14.6)
[2020-02-01 06:21] LABS: PHOSPHORUS 4.6 mg/dL (2.5-4.9)
[2020-02-01] MEDS: SODIUM CHLORIDE 0.9% INJ 3ML FLUSH IVF SCH ×3 (06:24→21:07)
[2020-02-01] MEDS ORDERED: MAGNESIUM SULFATE 1GM/2ML VIAL IM ONE (08:15)
[2020-02-01] MEDS ORDERED: POTASSIUM CHLORIDE INJ 40 MEQ in DEXT 5% WATER 250 ML IV ONE (08:30)
[2020-02-01 08:53] LABS: BG BASE EXCESS -6.5 mmol/L (-2.0-2.0); BG CARBOXYHEMOGLOBIN 0.7 % (0.5-1.5); BG DEOXYHEMOGLOBIN 1.3 % (0.0-5.0); BG FRACTION INSPIRED OXYGEN 40; BG HCO3 ACT 15.9 mmol/L (22.0-26.0); BG OXYGEN SATURATION 98.7 % (92.0-98.5); BG PCO2 23.9 mmHg (35.0-45.0); BG PO2 133.7 mmHg (75.0-100.0); BG SAMPLE SITE RIGHT RADIAL; BG TIDAL VOLUME(mL) 500 mL; BG TOTAL HEMOGLOBIN 12.8 g/dL (12.0-18.0); BG VENT MODE VENT - A/C; BG VENT RATE 18 set
[2020-02-01] MEDS: FUROSEMIDE 40MG/4ML VIAL IVP SCH ×3 (08:53→10:23)
[2020-02-01] MEDS: METOPROLOL TARTRATE 25MG TABLET NG SCH ×2 (08:54→21:00)
[2020-02-01] MEDS ORDERED: MAGNESIUM 1 G PREMIX 100 ML IV ONE (09:15)
[2020-02-01] MEDS ORDERED: LIDOCAINE HCL 1% 20ML VIAL (Pyxis) INJ ONE (11:09)
[2020-02-01] MEDS ORDERED: MIDODRINE HCL 2.5MG TABLET PO SCH ×2 (13:00→17:00)
[2020-02-01] MEDS: ENOXAPARIN 60MG/0.6ML SYR SUBCUT SCH (13:00)
[2020-02-01] MEDS: FENTANYL CITRATE/PF 1,000 MCG in SODIUM CHLORIDE 0.9% 80 ML IV PRN (17:35)
[2020-02-01] MEDS: PANTOPRAZOLE SODIUM 40 MG/VIAL IV SCH (21:07)
[2020-02-02] VITALS (90 sets, daily range): BP systolic 82–138; BP diastolic 56–84
[2020-02-02] MEDS: PIPERACILLIN/TAZOBACTAM 2.25 G in DEXTROSE 5% WATER 50 ML IV SCH ×4 (01:10→23:53)
[2020-02-02] MEDS: PHENYLEPHRINE 80 MG in DEXT 5% WATER 492 ML IV PRN ×3 (02:27→20:29)
[2020-02-02] MEDS: MIDAZOLAM HCL 100 MG in DEXT 5% WATER 80 ML IV PRN (04:01)
[2020-02-02] MEDS: SODIUM CHLORIDE 0.9% INJ 3ML FLUSH IVF SCH ×3 (06:09→22:21)
[2020-02-02 06:32] LABS: BASOPHILS % 0.2 % (0.0-2.0); EOSINOPHILS % 1.5 % (0.0-5.0); HEMOGLOBIN. 12.5 g/dL (12.0-16.0); LYMPHOCYTES % 16.3 % (20.0-50.0); MEAN CORPUSCULAR HEMOGLOBIN 32.6 pg (28.0-32.0); MEAN CORPUSCULAR VOLUME 96.4 fL (81.0-99.0); MONOCYTES % 9.7 % (2.0-8.0); NEUTROPHILS % 72.3 % (40.0-76.0); PLATELET 145 x1000/uL (130-400); RED BLOOD CELL COUNT 3.84 mill/uL (4.2-5.4); RED CELL DISTRIBUTION WIDTH 18.3 % (11.6-14.6)
[2020-02-02 06:57] LABS: PHOSPHORUS 4.9 mg/dL (2.5-4.9)
[2020-02-02] MEDS ORDERED: POTASSIUM CHLORIDE 10MEQ TABLET SR PO SCH (08:00)
[2020-02-02] MEDS: METOPROLOL TARTRATE 25MG TABLET NG SCH ×2 (09:00→20:11)
[2020-02-02 09:07] LABS: BG BASE EXCESS 1.5 mmol/L (-2.0-2.0); BG CARBOXYHEMOGLOBIN 0.3 % (0.5-1.5); BG DEOXYHEMOGLOBIN 0.8 % (0.0-5.0); BG FRACTION INSPIRED OXYGEN 40; BG HCO3 ACT 25.1 mmol/L (22.0-26.0); BG METHEMOGLOBIN 0.5 % (0.0-1.5); BG OXYGEN SATURATION 99.2 % (92.0-98.5); BG OXYHEMOGLOBIN 98.4 % (94.0-97.0); BG PH 7.461 (7.350-7.450); BG PO2 184.3 mmHg (75.0-100.0); BG SAMPLE SITE RIGHT RADIAL; BG TIDAL VOLUME(mL) 500 mL; BG TOTAL HEMOGLOBIN 12.9 g/dL (12.0-18.0); BG VENT MODE VENT - A/C; BG VENT RATE 18 set
[2020-02-02] MEDS: FUROSEMIDE 40MG/4ML VIAL IVP SCH (09:59)
[2020-02-02] MEDS: MIDODRINE HCL 2.5MG TABLET PO SCH ×3 (10:00→16:54)
[2020-02-02] MEDS ORDERED: POTASSIUM CHLORIDE 20MEQ/PACKET NG SCH (10:15)
[2020-02-02] MEDS ORDERED: VANCOMYCIN 500 MG PREMIX 100 ML IV SCH (11:30)
[2020-02-02] MEDS: ENOXAPARIN 60MG/0.6ML SYR SUBCUT SCH (12:20)
[2020-02-02] MEDS ORDERED: POTASSIUM CHLORIDE 20MEQ/PACKET NG NR (20:00)
[2020-02-02] MEDS: PANTOPRAZOLE SODIUM 40 MG/VIAL IV SCH (20:16)
[2020-02-03] VITALS (92 sets, daily range): BP systolic 82–144; BP diastolic 56–92
[2020-02-03 05:08] LABS: HEMATOCRIT. 36.2 % (36.0-48.0); HEMOGLOBIN. 12.2 g/dL (12.0-16.0); MEAN CORPUSCULAR HEMOGLOBIN 32.4 pg (28.0-32.0); MEAN PLATELET VOLUME 10.2 fl (7.4-10.4); PLATELET 102 x1000/uL (130-400); RED BLOOD CELL COUNT 3.77 mill/uL (4.2-5.4); RED CELL DISTRIBUTION WIDTH 18.4 % (11.6-14.6)
[2020-02-03] MEDS: PHENYLEPHRINE 80 MG in DEXT 5% WATER 492 ML IV PRN (05:13)
[2020-02-03] MEDS: MIDAZOLAM HCL 100 MG in DEXT 5% WATER 80 ML IV PRN (06:12)
[2020-02-03] MEDS: FENTANYL CITRATE/PF 1,000 MCG in SODIUM CHLORIDE 0.9% 80 ML IV PRN (06:12)
[2020-02-03] MEDS: SODIUM CHLORIDE 0.9% INJ 3ML FLUSH IVF SCH ×3 (06:13→21:10)
[2020-02-03] MEDS: FUROSEMIDE 40MG/4ML VIAL IVP SCH (08:41)
[2020-02-03] MEDS: PIPERACILLIN/TAZOBACTAM 2.25 G in DEXTROSE 5% WATER 50 ML IV SCH ×3 (08:42→23:45)
[2020-02-03] MEDS: MIDODRINE HCL 2.5MG TABLET PO SCH (08:42)
[2020-02-03] MEDS: METOPROLOL TARTRATE 25MG TABLET NG SCH ×2 (08:43→21:00)
[2020-02-03] MEDS ORDERED: POTASSIUM CHLORIDE 20MEQ/PACKET NG SCH (09:00)
[2020-02-03] MEDS ORDERED: MAGNESIUM 2 G PREMIX 50 ML IV SCH (10:00)
[2020-02-03 10:10] LABS: BG BASE EXCESS -1.7 mmol/L (-2.0-2.0); BG CARBOXYHEMOGLOBIN 0.3 % (0.5-1.5); BG DEOXYHEMOGLOBIN 1.1 % (0.0-5.0); BG FRACTION INSPIRED OXYGEN 40; BG HCO3 ACT 22.3 mmol/L (22.0-26.0); BG METHEMOGLOBIN 0.3 % (0.0-1.5); BG OXYGEN SATURATION 98.9 % (92.0-98.5); BG OXYHEMOGLOBIN 98.3 % (94.0-97.0); BG PCO2 35.8 mmHg (35.0-45.0); BG PH 7.413 (7.350-7.450); BG PO2 155.1 mmHg (75.0-100.0); BG SAMPLE SITE RIGHT RADIAL; BG TIDAL VOLUME(mL) 500 mL; BG TOTAL HEMOGLOBIN 12.7 g/dL (12.0-18.0); BG VENT MODE VENT - A/C; BG VENT RATE 14 set
[2020-02-03 11:40] LABS: PLATELET ESTIMATE SLIGHTLY DECREASED
[2020-02-03] MEDS: ENOXAPARIN 60MG/0.6ML SYR SUBCUT SCH (12:43)
[2020-02-03] MEDS: MIDODRINE HCL 5MG TABLET PO SCH ×3 (12:44→21:10)
[2020-02-03] MEDS: PANTOPRAZOLE SODIUM 40 MG/VIAL IV SCH (21:10)
[2020-02-04] VITALS (94 sets, daily range): BP systolic 88–161; BP diastolic 56–82
[2020-02-04] MEDS: PHENYLEPHRINE 80 MG in DEXT 5% WATER 492 ML IV PRN ×2 (00:56→15:24)
[2020-02-04] MEDS: SODIUM CHLORIDE 0.9% INJ 3ML FLUSH IVF SCH ×3 (05:31→22:19)
[2020-02-04 06:39] LABS: BASOPHILS % 0.3 % (0.0-2.0); EOSINOPHILS % 1.4 % (0.0-5.0); HEMATOCRIT. 35.6 % (36.0-48.0); HEMOGLOBIN. 12.2 g/dL (12.0-16.0); LYMPHOCYTES % 15.6 % (20.0-50.0); MEAN CORPUSCULAR HEMOGLOBIN 32.8 pg (28.0-32.0); MEAN CORPUSCULAR VOLUME 95.6 fL (81.0-99.0); MEAN PLATELET VOLUME 10.5 fl (7.4-10.4); MONOCYTES % 14.7 % (2.0-8.0); PLATELET 149 x1000/uL (130-400); RED BLOOD CELL COUNT 3.72 mill/uL (4.2-5.4); RED CELL DISTRIBUTION WIDTH 18.5 % (11.6-14.6)
[2020-02-04] MEDS: IPRATROPIUM/ALBUTEROL 0.5-3(2.5)MG/3ML NEB HHN PRN (08:16)
[2020-02-04] MEDS: MIDODRINE HCL 5MG TABLET PO SCH ×4 (08:39→20:40)
[2020-02-04] MEDS: PIPERACILLIN/TAZOBACTAM 2.25 G in DEXTROSE 5% WATER 50 ML IV SCH ×3 (08:39→23:27)
[2020-02-04] MEDS: METOPROLOL TARTRATE 25MG TABLET NG SCH ×2 (08:39→20:40)
[2020-02-04] MEDS: ENOXAPARIN 60MG/0.6ML SYR SUBCUT SCH (12:07)
[2020-02-04] MEDS: VANCOMYCIN 750 MG PREMIX 150 ML IV SCH (12:07)
[2020-02-04] MEDS: FENTANYL CITRATE/PF 1,000 MCG in SODIUM CHLORIDE 0.9% 80 ML IV PRN (16:05)
[2020-02-04] MEDS: MIDAZOLAM HCL 100 MG in DEXT 5% WATER 80 ML IV PRN (16:05)
[2020-02-04] MEDS: PANTOPRAZOLE SODIUM 40 MG/VIAL IV SCH (20:39)
[2020-02-05] VITALS (58 sets, daily range): BP systolic 90–146; BP diastolic 55–86
[2020-02-05] MEDS: SODIUM CHLORIDE 0.9% INJ 3ML FLUSH IVF SCH ×3 (05:50→22:51)
[2020-02-05 06:05] LABS: BASOPHILS % 0.2 % (0.0-2.0); EOSINOPHILS % 0.8 % (0.0-5.0); HEMATOCRIT. 32.2 % (36.0-48.0); HEMOGLOBIN. 10.9 g/dL (12.0-16.0); LYMPHOCYTES % 9.9 % (20.0-50.0); MEAN CORPUSCULAR HEMOGLOBIN 32.5 pg (28.0-32.0); MEAN CORPUSCULAR VOLUME 95.5 fL (81.0-99.0); MEAN PLATELET VOLUME 10.3 fl (7.4-10.4); MONOCYTES % 10.4 % (2.0-8.0); NEUTROPHILS % 78.7 % (40.0-76.0); PLATELET 163 x1000/uL (130-400); RED BLOOD CELL COUNT 3.37 mill/uL (4.2-5.4); RED CELL DISTRIBUTION WIDTH 18.4 % (11.6-14.6)
[2020-02-05 06:06] LABS: CHLORIDE 98 mEq/L (98-107)
[2020-02-05] MEDS: METOPROLOL TARTRATE 25MG TABLET NG SCH ×2 (08:03→20:35)
[2020-02-05] MEDS: MIDODRINE HCL 5MG TABLET PO SCH ×4 (08:03→20:35)
[2020-02-05] MEDS: PIPERACILLIN/TAZOBACTAM 2.25 G in DEXTROSE 5% WATER 50 ML IV SCH ×3 (08:04→23:10)
[2020-02-05 11:01] LABS: BG BASE EXCESS 2.8 mmol/L (-2.0-2.0); BG CARBOXYHEMOGLOBIN 0.3 % (0.5-1.5); BG DEOXYHEMOGLOBIN 1.8 % (0.0-5.0); BG FRACTION INSPIRED OXYGEN 30; BG HCO3 ACT 26.4 mmol/L (22.0-26.0); BG METHEMOGLOBIN 0.4 % (0.0-1.5); BG OXYGEN SATURATION 98.2 % (92.0-98.5); BG OXYHEMOGLOBIN 97.5 % (94.0-97.0); BG PCO2 36.7 mmHg (35.0-45.0); BG PH 7.474 (7.350-7.450); BG PO2 112.8 mmHg (75.0-100.0); BG PRESSURE SUPPORT 8; BG SAMPLE SITE RIGHT BRACHIAL; BG TOTAL HEMOGLOBIN 11.8 g/dL (12.0-18.0); BG VENT MODE VENT - CPAP
[2020-02-05] MEDS: ENOXAPARIN 60MG/0.6ML SYR SUBCUT SCH (11:53)
[2020-02-05] MEDS: ACETAMINOPHEN 325MG TABLET PO PRN (20:35)
[2020-02-05] MEDS: PANTOPRAZOLE SODIUM 40 MG/VIAL IV SCH (20:36)
[2020-02-05] MEDS: IPRATROPIUM/ALBUTEROL 0.5-3(2.5)MG/3ML NEB HHN PRN (20:42)
[2020-02-06] VITALS (18 sets, daily range): BP systolic 100–127; BP diastolic 51–73
[2020-02-06] MEDS: GUAIFENESIN 200MG/10ML SUGAR FREE UDC PO PRN ×2 (00:41→08:30)
[2020-02-06] MEDS: SODIUM CHLORIDE 0.9% INJ 3ML FLUSH IVF SCH ×3 (05:05→20:58)
[2020-02-06] MEDS: PIPERACILLIN/TAZOBACTAM 2.25 G in DEXTROSE 5% WATER 50 ML IV SCH ×2 (08:28→16:00)
[2020-02-06] MEDS: MIDODRINE HCL 5MG TABLET PO SCH ×4 (08:29→21:00)
[2020-02-06] MEDS: METOPROLOL TARTRATE 25MG TABLET NG SCH ×3 (08:50→20:57)
[2020-02-06] MEDS: VANCOMYCIN 750 MG PREMIX 150 ML IV SCH (12:30)
[2020-02-06] MEDS: ENOXAPARIN 60MG/0.6ML SYR SUBCUT SCH (12:30)
[2020-02-06 17:25] LABS: CHLORIDE 102 mEq/L (98-107)
[2020-02-06] MEDS: DIPHENHYDRAMINE 50MG/ML VIAL IV PRN ×2 (18:49→20:57)
[2020-02-06] MEDS: PANTOPRAZOLE SODIUM 40 MG/VIAL IV SCH (20:57)
[2020-02-07] VITALS (12 sets, daily range): BP systolic 100–136; BP diastolic 42–76
[2020-02-07] MEDS: ONDANSETRON HCL 4MG/2ML INJ IV PRN (00:30)
[2020-02-07] MEDS: PIPERACILLIN/TAZOBACTAM 2.25 G in DEXTROSE 5% WATER 50 ML IV SCH ×4 (00:45→21:27)
[2020-02-07] MEDS: SODIUM CHLORIDE 0.9% INJ 3ML FLUSH IVF SCH ×3 (05:17→22:00)
[2020-02-07 06:23] LABS: BASOPHILS % 0.2 % (0.0-2.0); EOSINOPHILS % 0.7 % (0.0-5.0); HEMATOCRIT. 28.8 % (36.0-48.0); HEMOGLOBIN. 9.8 g/dL (12.0-16.0); LYMPHOCYTES % 9.1 % (20.0-50.0); MEAN CORPUSCULAR HEMOGLOBIN 32.3 pg (28.0-32.0); MEAN CORPUSCULAR VOLUME 95.4 fL (81.0-99.0); MEAN PLATELET VOLUME 10.1 fl (7.4-10.4); MONOCYTES % 9.1 % (2.0-8.0); NEUTROPHILS % 80.9 % (40.0-76.0); PLATELET 186 x1000/uL (130-400); RED BLOOD CELL COUNT 3.02 mill/uL (4.2-5.4); RED CELL DISTRIBUTION WIDTH 18.4 % (11.6-14.6)
[2020-02-07] MEDS: METOPROLOL TARTRATE 25MG TABLET NG SCH ×2 (09:15→21:28)
[2020-02-07] MEDS: MIDODRINE HCL 5MG TABLET PO SCH ×4 (09:15→21:27)
[2020-02-07] MEDS ORDERED: POTASSIUM CHLORIDE INJ 40 MEQ in DEXT 5% WATER 500 ML IV NR (11:30)
[2020-02-07] MEDS: ENOXAPARIN 60MG/0.6ML SYR SUBCUT SCH (11:47)
[2020-02-07] MEDS: DIPHENHYDRAMINE 50MG/ML VIAL IV PRN (21:27)
[2020-02-07] MEDS: PANTOPRAZOLE SODIUM 40 MG/VIAL IV SCH (21:27)
[2020-02-07] MEDS: ZOLPIDEM TARTRATE 5MG TABLET PO PRN (21:28)
[2020-02-08] VITALS (11 sets, daily range): BP systolic 100–132; BP diastolic 23–77
[2020-02-08] MEDS: SODIUM CHLORIDE 0.9% INJ 3ML FLUSH IVF SCH ×3 (06:11→20:26)
[2020-02-08 06:28] LABS: BASOPHILS % 0.4 % (0.0-2.0); LYMPHOCYTES % 11.1 % (20.0-50.0); MEAN CORPUSCULAR HEMOGLOBIN 32.4 pg (28.0-32.0); MEAN CORPUSCULAR VOLUME 95.6 fL (81.0-99.0); MEAN PLATELET VOLUME 9.7 fl (7.4-10.4); MONOCYTES % 10.4 % (2.0-8.0); NEUTROPHILS % 77.1 % (40.0-76.0); PLATELET 232 x1000/uL (130-400); RED CELL DISTRIBUTION WIDTH 18.4 % (11.6-14.6)
[2020-02-08 06:38] LABS: HEMOGLOBIN. 11.3 g/dL (12.0-16.0)
[2020-02-08 06:39] LABS: HEMATOCRIT. 33.5 % (36.0-48.0)
[2020-02-08] MEDS: MIDODRINE HCL 5MG TABLET PO SCH ×4 (08:59→20:19)
[2020-02-08] MEDS: METOPROLOL TARTRATE 25MG TABLET NG SCH ×2 (09:00→20:19)
[2020-02-08] MEDS ORDERED: POTASSIUM CHLORIDE 20MEQ TABLET SR PO NR (10:15)
[2020-02-08] MEDS ORDERED: VANCOMYCIN 500 MG PREMIX 100 ML IV SCH (11:00)
[2020-02-08] MEDS: RIVAROXABAN 15 MG TABLET PO SCH (17:48)
[2020-02-08] MEDS: PANTOPRAZOLE SODIUM 40 MG/VIAL IV SCH (20:18)
[2020-02-08] MEDS: DIPHENHYDRAMINE 50MG/ML VIAL IV PRN (20:19)
[2020-02-08] MEDS: ZOLPIDEM TARTRATE 5MG TABLET PO PRN (20:19)
[2020-02-09] VITALS (14 sets, daily range): BP systolic 102–125; BP diastolic 25–75
[2020-02-09] MEDS: ONDANSETRON HCL 4MG/2ML INJ IV PRN (01:50)
[2020-02-09] MEDS: DIPHENHYDRAMINE 50MG/ML VIAL IV PRN (01:50)
[2020-02-09] MEDS: SODIUM CHLORIDE 0.9% INJ 3ML FLUSH IVF SCH ×2 (05:06→14:16)
[2020-02-09] MEDS: METOPROLOL TARTRATE 25MG TABLET NG SCH (08:20)
[2020-02-09] MEDS: MIDODRINE HCL 5MG TABLET PO SCH ×3 (08:20→17:02)
[2020-02-09] MEDS: ACETAMINOPHEN 325MG TABLET PO PRN (10:11)
[2020-02-09] MEDS ORDERED: AZITHROMYCIN 500 MG TABLET PO SCH (14:00)
[2020-02-09] MEDS: ZOLPIDEM TARTRATE 5MG TABLET PO PRN (15:30)
[2020-02-09] MEDS: RIVAROXABAN 15 MG TABLET PO SCH (17:09)
[2020-02-14 04:07] LABS: OVA & PARASITE EXAM Final report (.)
== END 2020-02-09 21:00 | DRG 870 ==
LOC: ER 07:31 → MICUSO 09:36 → EDBEDREQ 09:45 → EDBEDREQTM 09:45 → MICUSO 16:10 → MICUNO 01-29 09:49 → CVICU 01-30 21:30 → 5EST 02-06 14:14
PROVIDERS: ADMIT Internal Medicine; ATTEND Internal Medicine
PROC: 5A1955Z Respiratory Ventilation, Greater than 96 Consecutive Hours (ICD-10-PCS; principal; 2020-01-28)
PROC: 0BH17EZ Insertion of Endotracheal Airway into Trachea, Via Natural or Artificial Opening (ICD-10-PCS; 2020-01-28)
PROC: 06HY33Z Insertion of Infusion Device into Lower Vein, Percutaneous Approach (ICD-10-PCS; 2020-01-28)
PROC: 05HY33Z Insertion of Infusion Device into Upper Vein, Percutaneous Approach (ICD-10-PCS; 2020-02-01)
PROC: B54MZZA Ultrasonography of Right Upper Extremity Veins, Guidance (ICD-10-PCS; 2020-02-01)
DX: A41.9 Sepsis, unspecified organism (principal); J96.00 Acute respiratory failure, unspecified whether with hypoxia or hypercapnia; I50.23 Acute on chronic systolic (congestive) heart failure; K72.00 Acute and subacute hepatic failure without coma; N17.0 Acute kidney failure with tubular necrosis; J18.9 Pneumonia, unspecified organism; E43 Unspecified severe protein-calorie malnutrition; J44.1 Chronic obstructive pulmonary disease with (acute) exacerbation; I48.92 Unspecified atrial flutter; I42.9 Cardiomyopathy, unspecified; I13.0 Hypertensive heart and chronic kidney disease with heart failure and stage 1 through stage 4 chronic kidney disease, or unspecified chronic kidney disease; C15.9 Malignant neoplasm of esophagus, unspecified; J44.0 Chronic obstructive pulmonary disease with (acute) lower respiratory infection; N18.9 Chronic kidney disease, unspecified; E87.5 Hyperkalemia; E78.5 Hyperlipidemia, unspecified; I44.7 Left bundle-branch block, unspecified; K22.2 Esophageal obstruction; F10.10 Alcohol abuse, uncomplicated; Y90.9 Presence of alcohol in blood, level not specified; I25.10 Atherosclerotic heart disease of native coronary artery without angina pectoris; G89.4 Chronic pain syndrome; K21.9 Gastro-esophageal reflux disease without esophagitis; F17.210 Nicotine dependence, cigarettes, uncomplicated; Z20.828 Contact with and (suspected) exposure to other viral communicable diseases; E87.6 Hypokalemia; R19.7 Diarrhea, unspecified; F41.9 Anxiety disorder, unspecified; Z79.891 Long term (current) use of opiate analgesic; Z79.899 Other long term (current) drug therapy; Z85.01 Personal history of malignant neoplasm of esophagus; Z87.11 Personal history of peptic ulcer disease; Z68.23 Body mass index [BMI] 23.0-23.9, adult
CPT/HCPCS: 36415; 36600; 71045; 76700; 76937; 78580; 80048; 80053; 80076; 80202; 80320; 82375; 82550; 82553; 82805; 82962; 83605; 83735; 83880; 84100; 84145; 84484; 85025; 86850; 86900; 87015; 87045; 87070; 87177; 87209; 87427; 87449; 92610; 93005; 94002; 94003; 94644; 96374; 97110; 97162; 99291; C1725; C1769; C9113; J1200; J1650; J1940; J2250; J2260; J2370; J2405; J2543; J2704; J2930; J3010; J3370; J3475; J3480; J3490; J7050; J7060; J7070; G0480; U0003-CS

== ENCOUNTER 2020-04-09 06:41 | Inpatient (IN) | payer MEDICARE, MEDICAID ==
[2020-04-09] VITALS (10 sets, daily range): BP systolic 106–142; BP diastolic 44–72
[~2020-04-09] VITALS: Ht 167.6 cm; Wt 56.3 kg
[2020-04-09] MEDS ORDERED: IPRATROPIUM BROMIDE (0.02%) 0.5MG/2.5ML NEB HHN STA (07:08)
[2020-04-09] MEDS ORDERED: ALBUTEROL (0.083%) 2.5MG/3ML NEB HHN STA (07:08)
[2020-04-09] MEDS ORDERED: METHYLPREDNISOLONE SOD SUCC 125 MG/2 ML VIAL IV STA (07:08)
[2020-04-09] MEDS ORDERED: MAGNESIUM 2 G PREMIX 50 ML IV STA (07:10)
[2020-04-09] MEDS ORDERED: LEVOFLOXACIN 750MG PREMIX 150 ML IV STA (07:58)
[2020-04-09 08:20] LABS: BASOPHILS % 0.5 % (0.0-2.0); EOSINOPHILS % 0.7 % (0.0-5.0); HEMATOCRIT. 34.2 % (36.0-48.0); HEMOGLOBIN. 11.2 g/dL (12.0-16.0); LYMPHOCYTES % 20.9 % (20.0-50.0); MEAN CORPUSCULAR HEMOGLOBIN 29.5 pg (28.0-32.0); MEAN CORPUSCULAR VOLUME 90.3 fL (81.0-99.0); NEUTROPHILS % 72.9 % (40.0-76.0); RED BLOOD CELL COUNT 3.79 mill/uL (4.2-5.4); RED CELL DISTRIBUTION WIDTH 16.5 % (11.6-14.6)
[2020-04-09 08:25] LABS: CHLORIDE 110 mEq/L (98-107)
[2020-04-09 09:17] LABS: PLATELET 253 x1000/uL (130-400)
[2020-04-09 10:01] LABS: BG BASE EXCESS -5.7 mmol/L (-2.0-2.0); BG BILEVEL POS AIRWAY PRESSURE ST=15/5; BG CARBOXYHEMOGLOBIN 0.1 % (0.5-1.5); BG DEOXYHEMOGLOBIN 0.9 % (0.0-5.0); BG FRACTION INSPIRED OXYGEN 100; BG HCO3 ACT 18.4 mmol/L (22.0-26.0); BG METHEMOGLOBIN 0.3 % (0.0-1.5); BG OXYGEN SATURATION 99.1 % (92.0-98.5); BG OXYHEMOGLOBIN 98.7 % (94.0-97.0); BG PCO2 31.7 mmHg (35.0-45.0); BG PH 7.382 (7.350-7.450); BG PO2 187.7 mmHg (75.0-100.0); BG SAMPLE SITE LEFT RADIAL; BG TOTAL HEMOGLOBIN 11.8 g/dL (12.0-18.0); BG VENT MODE MASK - BIPAP; BG VENT RATE 14 set
[2020-04-09] MEDS ORDERED: FUROSEMIDE 40MG/4ML VIAL IVP ONE (11:15)
[2020-04-09] MEDS ORDERED: IPRATROPIUM/ALBUTEROL 0.5-3(2.5)MG/3ML NEB HHN PRN ×2 (11:15→11:45)
[2020-04-09] MEDS ORDERED: ACETAMINOPHEN 325MG TABLET PO PRN (11:45)
[2020-04-09] MEDS ORDERED: HYDROCODONE/ACETAMINOPHEN 10/325MG TABLET PO PRN (11:45)
[2020-04-09] MEDS ORDERED: LORAZEPAM 2MG/ML CPJ IV PRN (11:45)
[2020-04-09] MEDS ORDERED: ONDANSETRON HCL 4MG/2ML INJ IV PRN (11:45)
[2020-04-09] MEDS ORDERED: DIPHENHYDRAMINE 50MG/ML VIAL IV PRN (11:45)
[2020-04-09] MEDS ORDERED: CLONIDINE 0.1MG TABLET PO PRN (11:45)
[2020-04-09] MEDS ORDERED: CEFTRIAXONE 1 G PREMIX 50 ML IV SCH (11:45)
[2020-04-09] MEDS ORDERED: DOCUSATE SODIUM 100MG CAPSULE PO PRN (11:45)
[2020-04-09] MEDS ORDERED: GUAIFENESIN 200MG/10ML SUGAR FREE UDC PO PRN (11:45)
[2020-04-09] MEDS ORDERED: MAGNESIUM/ALUMINUM HYDROXIDE/SIMETHICONE 30ML UDC PO PRN (11:45)
[2020-04-09] MEDS ORDERED: MORPHINE SULFATE 2 MG/ML CPJ (NOT FOR IM USE) IV PRN (11:45)
[2020-04-09] MEDS ORDERED: HYDRALAZINE 20MG/ML VIAL IV PRN (11:45)
[2020-04-09 12:10] LABS: CREATINE KINASE 107 IU/L (26-192)
[2020-04-09] MEDS: ENOXAPARIN 30MG/0.3ML SYR SUBCUT SCH (13:24)
[2020-04-09] MEDS: SODIUM CHLORIDE 0.9% INJ 3ML FLUSH IVF SCH ×2 (14:00→22:00)
[2020-04-09] MEDS ORDERED: AZITHROMYCIN 500 MG in DEXT 5% WATER 250 ML IV SCH (15:00)
[2020-04-09] MEDS: CEFTRIAXONE 1,000 MG in DEXTROSE 5% WATER 50 ML IV SCH (15:17)
[2020-04-09] MEDS: IPRATROPIUM/ALBUTEROL 0.5-3(2.5)MG/3ML NEB HHN SCH ×2 (15:35→20:53)
[2020-04-09] MEDS: BUDESONIDE 0.5MG/2ML NEB HHN SCH (15:35)
[2020-04-09] MEDS: FUROSEMIDE 40MG/4ML VIAL IVP SCH (18:17)
[2020-04-10] VITALS (12 sets, daily range): BP systolic 92–130; BP diastolic 52–71
[2020-04-10] MEDS: IPRATROPIUM/ALBUTEROL 0.5-3(2.5)MG/3ML NEB HHN SCH ×4 (02:28→21:10)
[2020-04-10] MEDS: BUDESONIDE 0.5MG/2ML NEB HHN SCH ×3 (02:29→21:10)
[2020-04-10] MEDS: SODIUM CHLORIDE 0.9% INJ 3ML FLUSH IVF SCH ×3 (05:44→21:28)
[2020-04-10 06:36] LABS: CHLORIDE 107 mEq/L (98-107)
[2020-04-10 07:07] LABS: BASOPHILS % 0.2 % (0.0-2.0); HEMATOCRIT. 29.5 % (36.0-48.0); HEMOGLOBIN. 9.8 g/dL (12.0-16.0); LYMPHOCYTES % 8.6 % (20.0-50.0); MEAN CORPUSCULAR HEMOGLOBIN 29.3 pg (28.0-32.0); MEAN CORPUSCULAR VOLUME 88.3 fL (81.0-99.0); MEAN PLATELET VOLUME 9.3 fl (7.4-10.4); MONOCYTES % 7.8 % (2.0-8.0); NEUTROPHILS % 83.4 % (40.0-76.0); PLATELET 196 x1000/uL (130-400); RED BLOOD CELL COUNT 3.34 mill/uL (4.2-5.4); RED CELL DISTRIBUTION WIDTH 16.3 % (11.6-14.6)
[2020-04-10] MEDS: FUROSEMIDE 40MG/4ML VIAL IVP SCH ×2 (09:11→18:50)
[2020-04-10] MEDS: ENOXAPARIN 30MG/0.3ML SYR SUBCUT SCH (09:15)
[2020-04-10] MEDS ORDERED: ALBUMIN HUMAN 12.5G/250ML (5%) IV SCH (12:00)
[2020-04-10] MEDS: AZITHROMYCIN 500 MG in DEXT 5% WATER 250 ML IV SCH (12:44)
[2020-04-10] MEDS: CEFTRIAXONE 1,000 MG in DEXTROSE 5% WATER 50 ML IV SCH (16:10)
[2020-04-10] MEDS: CARVEDILOL 3.125 MG TABLET PO SCH (21:00)
[2020-04-11] VITALS (15 sets, daily range): BP systolic 93–131; BP diastolic 52–79
[2020-04-11] MEDS: IPRATROPIUM/ALBUTEROL 0.5-3(2.5)MG/3ML NEB HHN SCH ×4 (02:25→21:20)
[2020-04-11] MEDS: SODIUM CHLORIDE 0.9% INJ 3ML FLUSH IVF SCH ×3 (05:30→23:13)
[2020-04-11] MEDS: BUDESONIDE 0.5MG/2ML NEB HHN SCH ×2 (08:27→21:20)
[2020-04-11] MEDS: CARVEDILOL 3.125 MG TABLET PO SCH ×2 (09:12→20:56)
[2020-04-11] MEDS: ENOXAPARIN 30MG/0.3ML SYR SUBCUT SCH (09:12)
[2020-04-11] MEDS: FUROSEMIDE 40MG/4ML VIAL IVP SCH ×2 (09:13→17:34)
[2020-04-11 09:42] LABS: BASOPHILS % 0.5 % (0.0-2.0); EOSINOPHILS % 0.5 % (0.0-5.0); HEMATOCRIT. 32.5 % (36.0-48.0); HEMOGLOBIN. 10.7 g/dL (12.0-16.0); LYMPHOCYTES % 17.1 % (20.0-50.0); MEAN CORPUSCULAR HEMOGLOBIN 29.2 pg (28.0-32.0); MEAN CORPUSCULAR VOLUME 88.5 fL (81.0-99.0); MEAN PLATELET VOLUME 9.4 fl (7.4-10.4); MONOCYTES % 7.3 % (2.0-8.0); NEUTROPHILS % 74.6 % (40.0-76.0); PLATELET 202 x1000/uL (130-400); RED BLOOD CELL COUNT 3.67 mill/uL (4.2-5.4); RED CELL DISTRIBUTION WIDTH 16.4 % (11.6-14.6)
[2020-04-11] MEDS: AZITHROMYCIN 500 MG in DEXT 5% WATER 250 ML IV SCH (12:54)
[2020-04-11] MEDS: CEFTRIAXONE 1,000 MG in DEXTROSE 5% WATER 50 ML IV SCH (14:46)
[2020-04-11 17:45] LABS: CLARITY URINE CLEAR (CLEAR); COLOR URINE YELLOW (YELLOW); KETONES URINE NEGATIVE (NEGATIVE); LEUKOCYTE ESTERASE URINE NEGATIVE (NEGATIVE); NITRITE URINE NEGATIVE (NEGATIVE); OCCULT BLOOD URINE NEGATIVE (NEGATIVE); PROTEIN URINE NEGATIVE (NEGATIVE); SPECIFIC GRAVITY URINE 1.011 (1.005-1.030); UROBILINOGEN URINE 0.2 E.U./dL (0.2-1.0)
[2020-04-12] VITALS (12 sets, daily range): BP systolic 90–121; BP diastolic 28–82
[2020-04-12] MEDS: IPRATROPIUM/ALBUTEROL 0.5-3(2.5)MG/3ML NEB HHN SCH ×4 (02:23→21:10)
[2020-04-12] MEDS: SODIUM CHLORIDE 0.9% INJ 3ML FLUSH IVF SCH ×3 (05:34→21:31)
[2020-04-12 07:07] LABS: BASOPHILS % 0.4 % (0.0-2.0); EOSINOPHILS % 1.3 % (0.0-5.0); HEMATOCRIT. 36.4 % (36.0-48.0); HEMOGLOBIN. 11.9 g/dL (12.0-16.0); LYMPHOCYTES % 26.6 % (20.0-50.0); MEAN CORPUSCULAR VOLUME 88.9 fL (81.0-99.0); MEAN PLATELET VOLUME 9.2 fl (7.4-10.4); MONOCYTES % 10.7 % (2.0-8.0); PLATELET 213 x1000/uL (130-400); RED CELL DISTRIBUTION WIDTH 16.4 % (11.6-14.6)
[2020-04-12] MEDS: FUROSEMIDE 40MG/4ML VIAL IVP SCH (08:17)
[2020-04-12] MEDS: ENOXAPARIN 30MG/0.3ML SYR SUBCUT SCH (08:17)
[2020-04-12] MEDS: CARVEDILOL 3.125 MG TABLET PO SCH ×3 (08:18→21:31)
[2020-04-12] MEDS: AZITHROMYCIN 500 MG in DEXT 5% WATER 250 ML IV SCH (11:09)
[2020-04-12] MEDS: CEFTRIAXONE 1,000 MG in DEXTROSE 5% WATER 50 ML IV SCH (13:35)
[2020-04-12] MEDS: BUDESONIDE 0.5MG/2ML NEB HHN SCH ×2 (14:00→21:10)
[2020-04-12] MEDS: FUROSEMIDE 40MG TABLET PO SCH (21:30)
[2020-04-13] VITALS (12 sets, daily range): BP systolic 90–117; BP diastolic 52–79
[2020-04-13] MEDS: IPRATROPIUM/ALBUTEROL 0.5-3(2.5)MG/3ML NEB HHN SCH ×4 (01:49→21:14)
[2020-04-13] MEDS: CARVEDILOL 3.125 MG TABLET PO SCH (05:42)
[2020-04-13] MEDS: SODIUM CHLORIDE 0.9% INJ 3ML FLUSH IVF SCH ×3 (05:43→21:08)
[2020-04-13] MEDS: BUDESONIDE 0.5MG/2ML NEB HHN SCH ×2 (08:27→21:14)
[2020-04-13] MEDS: FUROSEMIDE 40MG TABLET PO SCH ×2 (08:28→20:26)
[2020-04-13] MEDS: ENOXAPARIN 30MG/0.3ML SYR SUBCUT SCH (08:28)
[2020-04-13] MEDS: AZITHROMYCIN 500 MG in DEXT 5% WATER 250 ML IV SCH (12:09)
[2020-04-13 12:30] LABS: T4 FREE 0.97 ng/dL (0.76-1.46)
[2020-04-13] MEDS: CEFTRIAXONE 1,000 MG in DEXTROSE 5% WATER 50 ML IV SCH (13:39)
[2020-04-13] MEDS: CARVEDILOL 6.25 MG TABLET PO SCH (20:26)
[2020-04-14] VITALS (10 sets, daily range): BP systolic 100–121; BP diastolic 58–75
[2020-04-14] MEDS: IPRATROPIUM/ALBUTEROL 0.5-3(2.5)MG/3ML NEB HHN SCH ×4 (01:17→14:27)
[2020-04-14] MEDS: SODIUM CHLORIDE 0.9% INJ 3ML FLUSH IVF SCH ×2 (05:42→15:17)
[2020-04-14 06:22] LABS: HEMATOCRIT. 33.8 % (36.0-48.0); HEMOGLOBIN. 11.3 g/dL (12.0-16.0); MEAN CORPUSCULAR HEMOGLOBIN 29.5 pg (28.0-32.0); MEAN CORPUSCULAR VOLUME 88.4 fL (81.0-99.0); MEAN PLATELET VOLUME 9.1 fl (7.4-10.4); PLATELET 216 x1000/uL (130-400); RED BLOOD CELL COUNT 3.83 mill/uL (4.2-5.4); RED CELL DISTRIBUTION WIDTH 16.3 % (11.6-14.6)
[2020-04-14] MEDS: CARVEDILOL 6.25 MG TABLET PO SCH ×2 (09:00→13:41)
[2020-04-14] MEDS: FUROSEMIDE 40MG TABLET PO SCH (09:00)
[2020-04-14] MEDS: ENOXAPARIN 30MG/0.3ML SYR SUBCUT SCH (12:48)
[2020-04-14 12:54] LABS: PLATELET ESTIMATE NORMAL
[2020-04-14] MEDS ORDERED: ALBUMIN HUMAN 12.5G/250ML (5%) IV SCH (14:00)
== END 2020-04-14 20:06 | disposition home or self-care (01) | DRG 871 ==
LOC: ER 06:41 → 3WST 10:10 → EDBEDREQTM 10:12 → EDBEDREQ 10:12 → ENRESERV 10:49
PROVIDERS: ADMIT Internal Medicine; ATTEND Internal Medicine
PROC: 5A09357 Assistance with Respiratory Ventilation, Less than 24 Consecutive Hours, Continuous Positive Airway Pressure (ICD-10-PCS; principal; 2020-04-09)
DX: A41.9 Sepsis, unspecified organism (principal); J96.01 Acute respiratory failure with hypoxia; I50.23 Acute on chronic systolic (congestive) heart failure; J69.0 Pneumonitis due to inhalation of food and vomit; J44.0 Chronic obstructive pulmonary disease with (acute) lower respiratory infection; N17.9 Acute kidney failure, unspecified; I13.0 Hypertensive heart and chronic kidney disease with heart failure and stage 1 through stage 4 chronic kidney disease, or unspecified chronic kidney disease; I48.92 Unspecified atrial flutter; I42.0 Dilated cardiomyopathy; E78.5 Hyperlipidemia, unspecified; I48.91 Unspecified atrial fibrillation; G89.4 Chronic pain syndrome; K21.9 Gastro-esophageal reflux disease without esophagitis; F41.9 Anxiety disorder, unspecified; F17.200 Nicotine dependence, unspecified, uncomplicated; R74.0 Nonspecific elevation of levels of transaminase and lactic acid dehydrogenase [LDH]; I95.9 Hypotension, unspecified; I44.7 Left bundle-branch block, unspecified; D64.9 Anemia, unspecified; N18.3 Chronic kidney disease, stage 3 (moderate); Z85.01 Personal history of malignant neoplasm of esophagus; I08.1 Rheumatic disorders of both mitral and tricuspid valves; I27.20 Pulmonary hypertension, unspecified; F10.10 Alcohol abuse, uncomplicated; Z79.51 Long term (current) use of inhaled steroids; Z79.899 Other long term (current) drug therapy; Z92.3 Personal history of irradiation
CPT/HCPCS: 36415; 36600; 71045; 76770; 78580; 80048; 80053; 81003; 82375; 82550; 82805; 83880; 84439; 84443; 84481; 84484; 85025; 93005; 93306; 93970; 94640; 94644; 94660; 97110; 97116; 97162; 99291; J0456; J0696; J1650; J1940; J1956; J2930; J3475; J7060; J7626; P9041

== ENCOUNTER 2020-04-23 01:56 | Inpatient (IN) | payer MEDICARE, MEDICAID ==
[~2020-04-23] VITALS: Ht 167.6 cm; Wt 57.2 kg
[2020-04-23] MEDS ORDERED: NITROGLYCERIN OINT 1GM/INCH UDPKT TD ONE (02:15)
[2020-04-23] MEDS ORDERED: ASPIRIN 81MG TABLET PO ONE (02:15)
[2020-04-23] MEDS ORDERED: FUROSEMIDE 40MG/4ML VIAL IV ONE (02:15)
[2020-04-23] MEDS ORDERED: AZITHROMYCIN 500 MG in DEXT 5% WATER 250 ML IV ONE (03:00)
[2020-04-23] MEDS ORDERED: CEFTRIAXONE 1 G PREMIX 50 ML IV ONE (03:00)
[2020-04-23 03:06] LABS: BG BASE EXCESS -11.4 mmol/L (-2.0-2.0); BG BILEVEL POS AIRWAY PRESSURE 15/5; BG CARBOXYHEMOGLOBIN 0.3 % (0.5-1.5); BG DEOXYHEMOGLOBIN 1.5 % (0.0-5.0); BG FRACTION INSPIRED OXYGEN 100; BG METHEMOGLOBIN 0.4 % (0.0-1.5); BG OXYGEN SATURATION 98.5 % (92.0-98.5); BG OXYHEMOGLOBIN 97.8 % (94.0-97.0); BG PCO2 25.7 mmHg (35.0-45.0); BG PH 7.323 (7.350-7.450); BG PO2 146.1 mmHg (75.0-100.0); BG SAMPLE SITE RIGHT BRACHIAL; BG TOTAL HEMOGLOBIN 11.7 g/dL (12.0-18.0); BG VENT MODE MASK - BIPAP; BG VENT RATE 14 set
[2020-04-23 04:35] LABS: CHLORIDE 107 mEq/L (98-107); EOSINOPHILS % 0.1 % (0.0-5.0); LYMPHOCYTES % 9.1 % (20.0-50.0); MEAN CORPUSCULAR HEMOGLOBIN 28.7 pg (28.0-32.0); MEAN CORPUSCULAR VOLUME 88.5 fL (81.0-99.0); MEAN PLATELET VOLUME 9.3 fl (7.4-10.4); MONOCYTES % 4.9 % (2.0-8.0); NEUTROPHILS % 84.9 % (40.0-76.0); PLATELET 307 x1000/uL (130-400); RED BLOOD CELL COUNT 3.84 mill/uL (4.2-5.4); RED CELL DISTRIBUTION WIDTH 17.1 % (11.6-14.6)
[2020-04-23] MEDS ORDERED: MORPHINE SULFATE 4 MG/ML CPJ (NOT FOR IM USE) IV STA (04:37)
[2020-04-23] MEDS ORDERED: ONDANSETRON HCL 4MG/2ML INJ IV STA (04:37)
[2020-04-23 04:40] LABS: INR 1.1; PARTIAL THROMBOPLASTIN TIME 26.2 sec (23.4-31.0); PROTHROMBIN TIME 11.8 sec (9.6-11.0)
[2020-04-23] MEDS ORDERED: ATROPINE SULFATE 1MG/ML VIAL IV ONE (04:45)
[2020-04-23] MEDS ORDERED: NOREPINEPHRINE 8 MG in DEXT 5% WATER 242 ML IV STA (05:20)
[2020-04-23] MEDS ORDERED: NOREPINEPHRINE 8MG/250ML PMX 250 ML IV PRN (05:30)
[2020-04-23] MEDS ORDERED: ATROPINE SULFATE 1MG/10ML SYR IV NR (05:30)
[2020-04-23] MEDS ORDERED: PROPOFOL 10MG/ML 100ML 100 ML IV ONE (05:45)
[2020-04-23] MEDS ORDERED: PHENYLEPHRINE 50 MG in DEXT 5% WATER 240 ML IV PRN ×2 (06:35→07:00)
[2020-04-23] MEDS ORDERED: NOREPINEPHRINE 8 MG in DEXT 5% WATER 242 ML IV PRN (06:35)
[2020-04-23 06:38] LABS: BG BASE EXCESS -20.8 mmol/L (-2.0-2.0); BG CARBOXYHEMOGLOBIN 0.3 % (0.5-1.5); BG DEOXYHEMOGLOBIN 18.8 % (0.0-5.0); BG FRACTION INSPIRED OXYGEN 100; BG HCO3 ACT 9.7 mmol/L (22.0-26.0); BG METHEMOGLOBIN 0.4 % (0.0-1.5); BG OXYGEN SATURATION 81.1 % (92.0-98.5); BG OXYHEMOGLOBIN 80.5 % (94.0-97.0); BG PCO2 40.2 mmHg (35.0-45.0); BG PH 6.999 (7.350-7.450); BG PO2 67.6 mmHg (75.0-100.0); BG SAMPLE SITE RIGHT RADIAL; BG TIDAL VOLUME(mL) 400 mL; BG TOTAL HEMOGLOBIN 11.1 g/dL (12.0-18.0); BG VENT MODE VENT - A/C
[2020-04-23] MEDS ORDERED: PHENYLEPHRINE 50 MG in DEXT 5% WATER 245 ML IV STA (06:40)
[2020-04-23] MEDS ORDERED: KCL 20MEQ/100ML PREMIX 100 ML IV PRN (06:45)
[2020-04-23] MEDS ORDERED: DOPAMINE 400MG/250ML PREMIX 250 ML IV ONE (06:45)
[2020-04-23] MEDS ORDERED: MIDAZOLAM HCL 100 MG in DEXT 5% WATER 80 ML IV PRN (06:45)
[2020-04-23] MEDS ORDERED: ALBUMIN HUMAN 12.5G/250ML (5%) IV ONE (06:45)
[2020-04-23] MEDS ORDERED: SODIUM BICARBONATE 8.4% 1 MEQ/ML 50ML SYR IV ONE (06:45)
[2020-04-23] MEDS ORDERED: DOPAMINE 400MG/250ML PREMIX 250 ML IV PRN (06:45)
[2020-04-23] MEDS ORDERED: CALCIUM GLUCONATE 2,000 MG in DEXT 5% WATER 80 ML IV PRN (06:45)
[2020-04-23] MEDS ORDERED: ACETAMINOPHEN 650MG SUPP PR PRN (06:45)
[2020-04-23] MEDS ORDERED: MEPERIDINE HCL/PF 25MG/ML CPJ IV PRN (06:45)
[2020-04-23] MEDS: PANTOPRAZOLE SODIUM 40 MG/VIAL IV SCH (07:47)
[2020-04-23] MEDS: SODIUM BICARBONATE 100 MEQ in SODIUM CHLORIDE 0.45% 1,000 ML IV SCH ×2 (08:25→23:20)
[2020-04-23] MEDS ORDERED: FENTANYL CITRATE/PF 1,000 MCG in SODIUM CHLORIDE 0.9% 80 ML IV PRN (08:30)
[2020-04-23 09:25] LABS: BASOPHILS % 0.4 % (0.0-2.0); EOSINOPHILS % 0.2 % (0.0-5.0); HEMATOCRIT. 26.9 % (36.0-48.0); HEMOGLOBIN. 8.7 g/dL (12.0-16.0); LYMPHOCYTES % 9.4 % (20.0-50.0); MEAN CORPUSCULAR HEMOGLOBIN 28.5 pg (28.0-32.0); MEAN CORPUSCULAR VOLUME 88.1 fL (81.0-99.0); MEAN PLATELET VOLUME 8.8 fl (7.4-10.4); MONOCYTES % 4.5 % (2.0-8.0); NEUTROPHILS % 85.5 % (40.0-76.0); PLATELET 243 x1000/uL (130-400); RED BLOOD CELL COUNT 3.05 mill/uL (4.2-5.4); RED CELL DISTRIBUTION WIDTH 16.5 % (11.6-14.6)
[2020-04-23 09:26] LABS: CLARITY URINE CLOUDY (CLEAR); COLOR URINE YELLOW (YELLOW); KETONES URINE NEGATIVE (NEGATIVE); LEUKOCYTE ESTERASE URINE NEGATIVE (NEGATIVE); NITRITE URINE NEGATIVE (NEGATIVE); OCCULT BLOOD URINE 2+ (NEGATIVE); PH URINE 5.5 (4.5-8.0); PROTEIN URINE 3+ (NEGATIVE); SPECIFIC GRAVITY URINE 1.016 (1.005-1.030); UROBILINOGEN URINE 0.2 E.U./dL (0.2-1.0)
[2020-04-23 09:30] LABS: AMYLASE 230 IU/L (25-115)
[2020-04-23] MEDS ORDERED: PIPERACILLIN/TAZOBACTAM 3.375 G in DEXT 5% WATER 100 ML IV SCH (09:30)
[2020-04-23 09:31] LABS: INR 1.2; PARTIAL THROMBOPLASTIN TIME 29.9 sec (23.4-31.0)
[2020-04-23 09:34] LABS: LDL CHOLESTEROL 33 mg/dL (5-100)
[2020-04-23 09:35] LABS: HDL CHOLESTEROL 49 mg/dL (40-59)
[2020-04-23 09:37] LABS: B-HCG QUANTITATIVE < 1.0 mIU/mL (<3)
[2020-04-23] MEDS ORDERED: SODIUM CHLORIDE 0.9% 1,000 ML IV SCH (09:39)
[2020-04-23] MEDS ORDERED: CLONIDINE 0.1MG TABLET PO PRN (09:45)
[2020-04-23] MEDS ORDERED: DOCUSATE SODIUM 100MG CAPSULE PO PRN (09:45)
[2020-04-23] MEDS ORDERED: NA PHOS,M-B/NA PHOS,DI-BA ENEMA 118ML PR PRN (09:45)
[2020-04-23] MEDS ORDERED: GUAIFENESIN 200MG/10ML SUGAR FREE UDC PO PRN (09:45)
[2020-04-23] MEDS ORDERED: MAGNESIUM/ALUMINUM HYDROXIDE/SIMETHICONE 30ML UDC PO PRN (09:45)
[2020-04-23] MEDS ORDERED: ENOXAPARIN 40MG/0.4ML SYR SUBCUT SCH (09:45)
[2020-04-23] MEDS ORDERED: MORPHINE SULFATE 2 MG/ML CPJ (NOT FOR IM USE) IV PRN (09:45)
[2020-04-23] MEDS ORDERED: ONDANSETRON HCL 4MG/2ML INJ IV PRN (09:45)
[2020-04-23] MEDS: ENOXAPARIN 60MG/0.6ML SYR SUBCUT SCH (10:50)
[2020-04-23 10:57] LABS: BG BASE EXCESS -11.3 mmol/L (-2.0-2.0); BG CARBOXYHEMOGLOBIN 0.3 % (0.5-1.5); BG DEOXYHEMOGLOBIN 2.9 % (0.0-5.0); BG FRACTION INSPIRED OXYGEN 100; BG HCO3 ACT 16.2 mmol/L (22.0-26.0); BG METHEMOGLOBIN 0.3 % (0.0-1.5); BG OXYGEN SATURATION 97.1 % (92.0-98.5); BG OXYHEMOGLOBIN 96.5 % (94.0-97.0); BG PCO2 42.9 mmHg (35.0-45.0); BG PH 7.194 (7.350-7.450); BG PO2 117.1 mmHg (75.0-100.0); BG SAMPLE SITE RIGHT RADIAL; BG TIDAL VOLUME(mL) 500 mL; BG VENT MODE VENT- PRVC; BG VENT RATE 22 set
[2020-04-23] MEDS ORDERED: VANCOMYCIN 1 G PREMIX 200 ML IV SCH (11:00)
[2020-04-23] MEDS ORDERED: SODIUM BICARBONATE 8.4% 1 MEQ/ML 50ML SYR IV NR (11:30)
[2020-04-23] MEDS ORDERED: SODIUM BICARBONATE 8.4% MEQ/ML 50ML VIAL IV ONE (11:46)
[2020-04-23] MEDS: NOREPINEPHRINE 8 MG in DEXT 5% WATER 242 ML IV PRN (12:00)
[2020-04-23] MEDS: PIPERACILLIN/TAZOBACTAM 2.25 G in DEXTROSE 5% WATER 50 ML IV SCH ×3 (12:00→23:20)
[2020-04-23 12:21] LABS: PHOSPHORUS 5.4 mg/dL (2.5-4.9)
[2020-04-23] MEDS ORDERED: DEXTROSE 50% WATER 50ML SYRINGE IV PRN (12:30)
[2020-04-23] MEDS: MAGNESIUM 2 G PREMIX 50 ML IV PRN (12:31)
[2020-04-23] MEDS: BLOOD SUGAR DIAGNOSTIC STRIP TEST SCH ×3 (14:07→21:00)
[2020-04-23] MEDS: INSULIN LISPRO 100 UNITS/ML SUBCUT SCH ×3 (14:20→23:20)
[2020-04-23 15:32] LABS: *AMPHETAMINES SCREEN URINE NEGATIVE (NEGATIVE); *BARBITURATES SCREEN URINE NEGATIVE (NEGATIVE); *BENZODIAZEPINES SCREEN URINE PRESUMTIVE POSITIVE (NEGATIVE); *COCAINE SCREEN URINE NEGATIVE (NEGATIVE); CANNABINOID URINE SCREEN NEGATIVE (NEGATIVE); METHADONE URINE SCREEN NEGATIVE (NEGATIVE); OPIATES URINE SCREEN NEGATIVE (NEGATIVE); PHENCYCLIDINE URINE SCREEN NEGATIVE (NEGATIVE)
[2020-04-23 18:21] LABS: PHOSPHORUS 3.9 mg/dL (2.5-4.9)
[2020-04-23] MEDS ORDERED: KCL 20MEQ/100ML PREMIX 100 ML IV NR (18:35)
[2020-04-24] VITALS (49 sets, daily range): BP systolic 66–123; BP diastolic 31–71
[2020-04-24] MEDS: AZITHROMYCIN 500 MG in DEXT 5% WATER 250 ML IV SCH (03:54)
[2020-04-24] MEDS ORDERED: AZITHROMYCIN 500 MG in DEXT 5% WATER 250 ML IV SCH (04:00)
[2020-04-24 04:21] LABS: PHOSPHORUS 4.2 mg/dL (2.5-4.9)
[2020-04-24] MEDS: PIPERACILLIN/TAZOBACTAM 2.25 G in DEXTROSE 5% WATER 50 ML IV SCH ×4 (04:58→23:04)
[2020-04-24 06:33] LABS: BASOPHILS % 0.6 % (0.0-2.0); HEMATOCRIT. 28.3 % (36.0-48.0); HEMOGLOBIN. 9.6 g/dL (12.0-16.0); LYMPHOCYTES % 10.9 % (20.0-50.0); MEAN CORPUSCULAR HEMOGLOBIN 29.3 pg (28.0-32.0); MEAN CORPUSCULAR VOLUME 86.7 fL (81.0-99.0); MONOCYTES % 9.3 % (2.0-8.0); NEUTROPHILS % 79.2 % (40.0-76.0); PLATELET 200 x1000/uL (130-400); RED BLOOD CELL COUNT 3.26 mill/uL (4.2-5.4); RED CELL DISTRIBUTION WIDTH 16.3 % (11.6-14.6)
[2020-04-24 06:40] LABS: CHLORIDE 101 mEq/L (98-107)
[2020-04-24 06:47] LABS: LDL CHOLESTEROL 26 mg/dL (5-100); PHOSPHORUS 3.8 mg/dL (2.5-4.9)
[2020-04-24 06:49] LABS: HDL CHOLESTEROL 50 mg/dL (40-59)
[2020-04-24 06:51] LABS: T4 FREE 1.62 ng/dL (0.76-1.46)
[2020-04-24] MEDS: INSULIN LISPRO 100 UNITS/ML SUBCUT SCH ×4 (07:00→21:29)
[2020-04-24 07:03] LABS: INR 1.2
[2020-04-24] MEDS: BLOOD SUGAR DIAGNOSTIC STRIP TEST SCH ×4 (07:42→21:29)
[2020-04-24] MEDS ORDERED: ASPIRIN 81MG EC TABLET PO SCH (09:00)
[2020-04-24] MEDS: PANTOPRAZOLE SODIUM 40 MG/VIAL IV SCH (09:13)
[2020-04-24 09:18] LABS: BG BASE EXCESS 0.9 mmol/L (-2.0-2.0); BG CARBOXYHEMOGLOBIN 0.3 % (0.5-1.5); BG DEOXYHEMOGLOBIN 0.8 % (0.0-5.0); BG FRACTION INSPIRED OXYGEN 80; BG METHEMOGLOBIN 0.2 % (0.0-1.5); BG OXYGEN SATURATION 99.2 % (92.0-98.5); BG OXYHEMOGLOBIN 98.7 % (94.0-97.0); BG PCO2 37.7 mmHg (35.0-45.0); BG PH 7.439 (7.350-7.450); BG SAMPLE SITE RIGHT RADIAL; BG TIDAL VOLUME(mL) 500 mL; BG TOTAL HEMOGLOBIN 10.5 g/dL (12.0-18.0); BG VENT MODE VENT- PRVC; BG VENT RATE 26 set
[2020-04-24] MEDS ORDERED: MIDAZOLAM HCL 50 MG in DEXTROSE 5% WATER 40 ML IV PRN (11:30)
[2020-04-24] MEDS: NOREPINEPHRINE 8 MG in DEXT 5% WATER 242 ML IV PRN (11:32)
[2020-04-24] MEDS ORDERED: MIDAZOLAM HCL 100 MG in DEXT 5% WATER 100 ML IV PRN (11:45)
[2020-04-24] MEDS: DEXT 5%/0.9% NACL 1,000 ML IV SCH (12:22)
[2020-04-24 13:17] LABS: HEMATOCRIT 26.9 % (36.0-48.0); HEMOGLOBIN 9.2 g/dL (12.0-16.0); MEAN CORPUSCULAR HEMOGLOBIN 29.6 pg (28.0-32.0); MEAN CORPUSCULAR VOLUME 86.3 fL (81.0-99.0); PLATELET 185 x1000/uL (130-400); RED BLOOD CELL COUNT 3.12 mill/uL (4.2-5.4); RED CELL DISTRIBUTION WIDTH 16.1 % (11.6-14.6)
[2020-04-24 13:29] LABS: INR 1.3; PROTHROMBIN TIME 13.5 sec (9.6-11.0)
[2020-04-24 13:37] LABS: PHOSPHORUS 3.3 mg/dL (2.5-4.9)
[2020-04-24] MEDS ORDERED: KCL 20MEQ/100ML PREMIX 100 ML IV ONE (14:30)
[2020-04-24] MEDS ORDERED: POTASSIUM CHLORIDE INJ 40 MEQ in DEXT 5% WATER 250 ML IV ONE (14:30)
[2020-04-24] MEDS ORDERED: VANCOMYCIN 1 G PREMIX 200 ML IV SCH (14:30)
[2020-04-24] MEDS: MAGNESIUM 2 G PREMIX 50 ML IV PRN (16:25)
[2020-04-24] MEDS: FENTANYL CITRATE/PF 1,000 MCG in SODIUM CHLORIDE 0.9% 80 ML IV PRN (16:26)
[2020-04-24] MEDS ORDERED: POTASSIUM CHLORIDE INJ 60 MEQ in DEXT 5% WATER 500 ML IV SCH (17:00)
[2020-04-24 18:13] LABS: HEMATOCRIT 27.7 % (36.0-48.0); HEMOGLOBIN 9.4 g/dL (12.0-16.0); MEAN CORPUSCULAR HEMOGLOBIN 29.3 pg (28.0-32.0); MEAN CORPUSCULAR VOLUME 86.6 fL (81.0-99.0); PLATELET 190 x1000/uL (130-400); RED CELL DISTRIBUTION WIDTH 16.2 % (11.6-14.6)
[2020-04-24 18:21] LABS: INR 1.3; PARTIAL THROMBOPLASTIN TIME 36.2 sec (23.4-31.0); PROTHROMBIN TIME 13.5 sec (9.6-11.0)
[2020-04-24 18:24] LABS: PHOSPHORUS 3.8 mg/dL (2.5-4.9)
[2020-04-24] MEDS: PHENYLEPHRINE 100 MG in DEXT 5% WATER 240 ML IV PRN (19:56)
[2020-04-24] MEDS ORDERED: POTASSIUM CHLORIDE INJ 40 MEQ in DEXT 5% WATER 250 ML IV PRN (20:45)
[2020-04-24] MEDS: ENOXAPARIN 60MG/0.6ML SYR SUBCUT SCH (20:48)
[2020-04-24 21:33] LABS: HEMOGLOBIN 9.7 g/dL (12.0-16.0); MEAN CORPUSCULAR HEMOGLOBIN 29.3 pg (28.0-32.0); MEAN CORPUSCULAR VOLUME 87.7 fL (81.0-99.0); PLATELET 215 x1000/uL (130-400); RED BLOOD CELL COUNT 3.31 mill/uL (4.2-5.4); RED CELL DISTRIBUTION WIDTH 16.5 % (11.6-14.6)
[2020-04-24 21:45] LABS: PHOSPHORUS 3.7 mg/dL (2.5-4.9)
[2020-04-24 22:01] LABS: INR 1.3; PARTIAL THROMBOPLASTIN TIME 36.2 sec (23.4-31.0); PROTHROMBIN TIME 13.7 sec (9.6-11.0)
[2020-04-24 22:45] LABS: BG BASE EXCESS -2.7 mmol/L (-2.0-2.0); BG CARBOXYHEMOGLOBIN 0.1 % (0.5-1.5); BG DEOXYHEMOGLOBIN 3.9 % (0.0-5.0); BG FRACTION INSPIRED OXYGEN 35; BG HCO3 ACT 21.2 mmol/L (22.0-26.0); BG METHEMOGLOBIN 0.3 % (0.0-1.5); BG OXYGEN SATURATION 96.1 % (92.0-98.5); BG OXYHEMOGLOBIN 95.7 % (94.0-97.0); BG PCO2 33.8 mmHg (35.0-45.0); BG PH 7.416 (7.350-7.450); BG SAMPLE SITE LEFT RADIAL; BG TIDAL VOLUME(mL) 500 mL; BG VENT MODE VENT - A/C; BG VENT RATE 20 set
[2020-04-25] VITALS (98 sets, daily range): BP systolic 67–126; BP diastolic 44–85
[2020-04-25 01:40] LABS: HEMATOCRIT 27.5 % (36.0-48.0); HEMOGLOBIN 9.3 g/dL (12.0-16.0); MEAN CORPUSCULAR HEMOGLOBIN 29.3 pg (28.0-32.0); MEAN CORPUSCULAR VOLUME 86.6 fL (81.0-99.0); PLATELET 190 x1000/uL (130-400); RED BLOOD CELL COUNT 3.18 mill/uL (4.2-5.4); RED CELL DISTRIBUTION WIDTH 15.9 % (11.6-14.6)
[2020-04-25 01:53] LABS: PHOSPHORUS 3.7 mg/dL (2.5-4.9)
[2020-04-25 02:00] LABS: INR 1.5; PARTIAL THROMBOPLASTIN TIME 45.5 sec (23.4-31.0); PROTHROMBIN TIME 15.6 sec (9.6-11.0)
[2020-04-25] MEDS: NOREPINEPHRINE 32 MG in DEXT 5% WATER 218 ML IV PRN ×2 (02:09→18:35)
[2020-04-25] MEDS: PHENYLEPHRINE 100 MG in DEXT 5% WATER 240 ML IV PRN ×2 (02:09→13:58)
[2020-04-25] MEDS: AZITHROMYCIN 500 MG in DEXT 5% WATER 250 ML IV SCH (04:32)
[2020-04-25] MEDS: PIPERACILLIN/TAZOBACTAM 2.25 G in DEXTROSE 5% WATER 50 ML IV SCH ×4 (05:24→23:29)
[2020-04-25 06:17] LABS: HEMATOCRIT 30.2 % (36.0-48.0); HEMOGLOBIN 10.1 g/dL (12.0-16.0); MEAN CORPUSCULAR HEMOGLOBIN 28.9 pg (28.0-32.0); MEAN CORPUSCULAR VOLUME 86.9 fL (81.0-99.0); PLATELET 225 x1000/uL (130-400); RED BLOOD CELL COUNT 3.48 mill/uL (4.2-5.4); RED CELL DISTRIBUTION WIDTH 16.5 % (11.6-14.6)
[2020-04-25 06:30] LABS: INR 1.4; PROTHROMBIN TIME 14.7 sec (9.6-11.0)
[2020-04-25] MEDS: BLOOD SUGAR DIAGNOSTIC STRIP TEST SCH ×4 (06:30→21:14)
[2020-04-25] MEDS: INSULIN LISPRO 100 UNITS/ML SUBCUT SCH ×4 (06:31→21:15)
[2020-04-25 06:32] LABS: PHOSPHORUS 3.7 mg/dL (2.5-4.9)
[2020-04-25 08:17] LABS: BG BASE EXCESS -2.7 mmol/L (-2.0-2.0); BG CARBOXYHEMOGLOBIN 0.3 % (0.5-1.5); BG DEOXYHEMOGLOBIN 2.8 % (0.0-5.0); BG HCO3 ACT 20.2 mmol/L (22.0-26.0); BG METHEMOGLOBIN 0.2 % (0.0-1.5); BG OXYGEN SATURATION 97.2 % (92.0-98.5); BG OXYHEMOGLOBIN 96.7 % (94.0-97.0); BG PCO2 29.1 mmHg (35.0-45.0); BG PO2 99.8 mmHg (75.0-100.0); BG SAMPLE SITE RIGHT RADIAL; BG TIDAL VOLUME(mL) 500 mL; BG TOTAL HEMOGLOBIN 10.8 g/dL (12.0-18.0); BG VENT MODE VENT- PRVC; BG VENT RATE 20 set
[2020-04-25] MEDS: PANTOPRAZOLE SODIUM 40 MG/VIAL IV SCH (08:53)
[2020-04-25] MEDS ORDERED: PIPERACILLIN/TAZOBACTAM 2.25 G in DEXTROSE 5% WATER 50 ML IV SCH (10:15)
[2020-04-25] MEDS: ENOXAPARIN 60MG/0.6ML SYR SUBCUT SCH (10:43)
[2020-04-25] MEDS: FENTANYL CITRATE/PF 1,000 MCG in SODIUM CHLORIDE 0.9% 80 ML IV PRN (11:23)
[2020-04-25 12:38] LABS: HEMATOCRIT 30.1 % (36.0-48.0); HEMOGLOBIN 10.1 g/dL (12.0-16.0); MEAN CORPUSCULAR HEMOGLOBIN 29.2 pg (28.0-32.0); MEAN CORPUSCULAR VOLUME 86.9 fL (81.0-99.0); PLATELET 213 x1000/uL (130-400); RED BLOOD CELL COUNT 3.47 mill/uL (4.2-5.4); RED CELL DISTRIBUTION WIDTH 16.2 % (11.6-14.6)
[2020-04-25 12:50] LABS: INR 1.4; PARTIAL THROMBOPLASTIN TIME 44.9 sec (23.4-31.0); PROTHROMBIN TIME 14.4 sec (9.6-11.0)
[2020-04-25 12:52] LABS: PHOSPHORUS 4.1 mg/dL (2.5-4.9)
[2020-04-25] MEDS: IPRATROPIUM/ALBUTEROL 0.5-3(2.5)MG/3ML NEB NEB PRN ×2 (12:56→20:24)
[2020-04-25] MEDS: BUDESONIDE 0.5MG/2ML NEB HHN SCH ×2 (12:56→20:24)
[2020-04-25] MEDS: DEXT 5%/0.9% NACL 1,000 ML IV SCH (12:58)
[2020-04-25 19:10] LABS: HEMATOCRIT 29.2 % (36.0-48.0); HEMOGLOBIN 9.7 g/dL (12.0-16.0); MEAN CORPUSCULAR HEMOGLOBIN 28.9 pg (28.0-32.0); MEAN CORPUSCULAR VOLUME 86.9 fL (81.0-99.0); PLATELET 189 x1000/uL (130-400); RED BLOOD CELL COUNT 3.36 mill/uL (4.2-5.4); RED CELL DISTRIBUTION WIDTH 16.8 % (11.6-14.6)
[2020-04-25 19:22] LABS: PHOSPHORUS 3.9 mg/dL (2.5-4.9)
[2020-04-25 19:24] LABS: INR 1.3; PARTIAL THROMBOPLASTIN TIME 43.6 sec (23.4-31.0); PROTHROMBIN TIME 13.5 sec (9.6-11.0)
[2020-04-26] VITALS (93 sets, daily range): BP systolic 89–138; BP diastolic 51–80
[2020-04-26 00:22] LABS: HEMATOCRIT 29.1 % (36.0-48.0); HEMOGLOBIN 9.6 g/dL (12.0-16.0); MEAN CORPUSCULAR VOLUME 87.6 fL (81.0-99.0); PLATELET 190 x1000/uL (130-400); RED BLOOD CELL COUNT 3.32 mill/uL (4.2-5.4); RED CELL DISTRIBUTION WIDTH 16.7 % (11.6-14.6)
[2020-04-26 00:34] LABS: PHOSPHORUS 3.6 mg/dL (2.5-4.9)
[2020-04-26 00:37] LABS: INR 1.3; PARTIAL THROMBOPLASTIN TIME 34.4 sec (23.4-31.0); PROTHROMBIN TIME 13.3 sec (9.6-11.0)
[2020-04-26 00:58] LABS: BG BASE EXCESS -1.7 mmol/L (-2.0-2.0); BG CARBOXYHEMOGLOBIN 0.2 % (0.5-1.5); BG FRACTION INSPIRED OXYGEN 35; BG HCO3 ACT 21.4 mmol/L (22.0-26.0); BG METHEMOGLOBIN 0.2 % (0.0-1.5); BG OXYGEN SATURATION 85.9 % (92.0-98.5); BG OXYHEMOGLOBIN 85.6 % (94.0-97.0); BG PCO2 31.1 mmHg (35.0-45.0); BG PH 7.455 (7.350-7.450); BG SAMPLE SITE RIGHT RADIAL; BG TIDAL VOLUME(mL) 500 mL; BG TOTAL HEMOGLOBIN 12.5 g/dL (12.0-18.0); BG VENT MODE PRVC; BG VENT RATE 16 set
[2020-04-26] MEDS: PHENYLEPHRINE 100 MG in DEXT 5% WATER 240 ML IV PRN ×2 (01:09→23:32)
[2020-04-26] MEDS ORDERED: MAGNESIUM 2 G PREMIX 50 ML IV SCH (02:00)
[2020-04-26] MEDS: PIPERACILLIN/TAZOBACTAM 2.25 G in DEXTROSE 5% WATER 50 ML IV SCH ×4 (04:22→23:17)
[2020-04-26 06:02] LABS: BASOPHILS % 0.8 % (0.0-2.0); EOSINOPHILS % 0.2 % (0.0-5.0); HEMATOCRIT. 27.9 % (36.0-48.0); HEMOGLOBIN. 9.3 g/dL (12.0-16.0); LYMPHOCYTES % 8.7 % (20.0-50.0); MEAN CORPUSCULAR HEMOGLOBIN 29.3 pg (28.0-32.0); MEAN CORPUSCULAR VOLUME 87.8 fL (81.0-99.0); MEAN PLATELET VOLUME 9.8 fl (7.4-10.4); MONOCYTES % 5.8 % (2.0-8.0); NEUTROPHILS % 84.5 % (40.0-76.0); PLATELET 187 x1000/uL (130-400); RED BLOOD CELL COUNT 3.17 mill/uL (4.2-5.4); RED CELL DISTRIBUTION WIDTH 16.8 % (11.6-14.6)
[2020-04-26 06:12] LABS: PHOSPHORUS 3.6 mg/dL (2.5-4.9)
[2020-04-26] MEDS: INSULIN LISPRO 100 UNITS/ML SUBCUT SCH ×4 (06:30→21:00)
[2020-04-26] MEDS: BLOOD SUGAR DIAGNOSTIC STRIP TEST SCH ×4 (06:30→22:06)
[2020-04-26 06:31] LABS: INR 1.1; PARTIAL THROMBOPLASTIN TIME 36.8 sec (23.4-31.0)
[2020-04-26 08:25] LABS: BG BASE EXCESS -0.8 mmol/L (-2.0-2.0); BG CARBOXYHEMOGLOBIN 0.1 % (0.5-1.5); BG DEOXYHEMOGLOBIN 6.4 % (0.0-5.0); BG FRACTION INSPIRED OXYGEN 45; BG HCO3 ACT 22.6 mmol/L (22.0-26.0); BG METHEMOGLOBIN 0.5 % (0.0-1.5); BG OXYGEN SATURATION 93.6 % (92.0-98.5); BG PCO2 32.4 mmHg (35.0-45.0); BG PH 7.461 (7.350-7.450); BG PO2 71.4 mmHg (75.0-100.0); BG SAMPLE SITE RIGHT RADIAL; BG TIDAL VOLUME(mL) 500 mL; BG TOTAL HEMOGLOBIN 9.9 g/dL (12.0-18.0); BG VENT MODE PRVC; BG VENT RATE 16 set
[2020-04-26] MEDS: BUDESONIDE 0.5MG/2ML NEB HHN SCH ×2 (08:52→20:25)
[2020-04-26] MEDS: IPRATROPIUM/ALBUTEROL 0.5-3(2.5)MG/3ML NEB NEB PRN ×4 (08:52→20:25)
[2020-04-26] MEDS: ENOXAPARIN 60MG/0.6ML SYR SUBCUT SCH (09:06)
[2020-04-26] MEDS: MIDODRINE HCL 5MG TABLET PO SCH ×3 (09:06→21:53)
[2020-04-26] MEDS: PANTOPRAZOLE SODIUM 40 MG/VIAL IV SCH (09:07)
[2020-04-26] MEDS ORDERED: ALBUMIN HUMAN 25GM/100ML (25%) IV NR (14:30)
[2020-04-26] MEDS: HYDROCODONE/ACETAMINOPHEN 5/325MG TABLET PO PRN (22:00)
[2020-04-27] VITALS (85 sets, daily range): BP systolic 77–148; BP diastolic 16–112
[2020-04-27] MEDS: IPRATROPIUM/ALBUTEROL 0.5-3(2.5)MG/3ML NEB NEB PRN ×4 (00:16→20:41)
[2020-04-27] MEDS: PIPERACILLIN/TAZOBACTAM 2.25 G in DEXTROSE 5% WATER 50 ML IV SCH ×4 (04:39→23:35)
[2020-04-27 05:51] LABS: BASOPHILS % 0.4 % (0.0-2.0); EOSINOPHILS % 0.5 % (0.0-5.0); HEMATOCRIT. 27.8 % (36.0-48.0); HEMOGLOBIN. 9.3 g/dL (12.0-16.0); LYMPHOCYTES % 11.8 % (20.0-50.0); MEAN CORPUSCULAR HEMOGLOBIN 28.9 pg (28.0-32.0); MEAN CORPUSCULAR VOLUME 86.9 fL (81.0-99.0); MEAN PLATELET VOLUME 9.2 fl (7.4-10.4); MONOCYTES % 6.3 % (2.0-8.0); PLATELET 172 x1000/uL (130-400); RED CELL DISTRIBUTION WIDTH 16.5 % (11.6-14.6)
[2020-04-27] MEDS: HYDROCODONE/ACETAMINOPHEN 5/325MG TABLET PO PRN (05:53)
[2020-04-27] MEDS: MIDODRINE HCL 5MG TABLET PO SCH ×3 (05:56→22:16)
[2020-04-27 06:03] LABS: PHOSPHORUS 3.3 mg/dL (2.5-4.9)
[2020-04-27] MEDS: INSULIN LISPRO 100 UNITS/ML SUBCUT SCH ×5 (06:46→21:00)
[2020-04-27] MEDS: BLOOD SUGAR DIAGNOSTIC STRIP TEST SCH ×4 (06:46→21:00)
[2020-04-27] MEDS ORDERED: MIDODRINE HCL 5MG TABLET PO NR (08:00)
[2020-04-27] MEDS: BUDESONIDE 0.5MG/2ML NEB HHN SCH ×2 (08:15→20:42)
[2020-04-27] MEDS: PANTOPRAZOLE SODIUM 40 MG/VIAL IV SCH (08:51)
[2020-04-27] MEDS: ENOXAPARIN 60MG/0.6ML SYR SUBCUT SCH (08:52)
[2020-04-27 09:26] LABS: BG BASE EXCESS -2.3 mmol/L (-2.0-2.0); BG CARBOXYHEMOGLOBIN 0.3 % (0.5-1.5); BG DEOXYHEMOGLOBIN 6.1 % (0.0-5.0); BG FRACTION INSPIRED OXYGEN 35; BG METHEMOGLOBIN 0.1 % (0.0-1.5); BG OXYGEN SATURATION 93.9 % (92.0-98.5); BG OXYHEMOGLOBIN 93.5 % (94.0-97.0); BG PCO2 30.9 mmHg (35.0-45.0); BG PH 7.451 (7.350-7.450); BG PO2 72.5 mmHg (75.0-100.0); BG SAMPLE SITE RIGHT RADIAL; BG TIDAL VOLUME(mL) 500 mL; BG VENT MODE VENT - PRVC; BG VENT RATE 12 set
[2020-04-27] MEDS: PHENYLEPHRINE 100 MG in DEXT 5% WATER 240 ML IV PRN (09:40)
[2020-04-27] MEDS: LORAZEPAM 2MG/ML CPJ IV PRN (11:39)
[2020-04-28] VITALS (84 sets, daily range): BP systolic 89–166; BP diastolic 41–104
[2020-04-28] MEDS: LORAZEPAM 2MG/ML CPJ IV PRN ×2 (00:36→07:19)
[2020-04-28 04:59] LABS: BASOPHILS % 0.4 % (0.0-2.0); HEMATOCRIT. 29.2 % (36.0-48.0); HEMOGLOBIN. 9.8 g/dL (12.0-16.0); LYMPHOCYTES % 13.6 % (20.0-50.0); MEAN CORPUSCULAR HEMOGLOBIN 29.2 pg (28.0-32.0); MEAN CORPUSCULAR VOLUME 87.2 fL (81.0-99.0); MEAN PLATELET VOLUME 9.1 fl (7.4-10.4); MONOCYTES % 8.1 % (2.0-8.0); NEUTROPHILS % 76.9 % (40.0-76.0); PLATELET 167 x1000/uL (130-400); RED BLOOD CELL COUNT 3.35 mill/uL (4.2-5.4); RED CELL DISTRIBUTION WIDTH 16.7 % (11.6-14.6)
[2020-04-28] MEDS: BLOOD SUGAR DIAGNOSTIC STRIP TEST SCH ×4 (05:00→21:13)
[2020-04-28] MEDS: PIPERACILLIN/TAZOBACTAM 2.25 G in DEXTROSE 5% WATER 50 ML IV SCH (05:54)
[2020-04-28] MEDS: MIDODRINE HCL 5MG TABLET PO SCH ×3 (06:01→21:28)
[2020-04-28] MEDS: PANTOPRAZOLE SODIUM 40 MG/VIAL IV SCH (08:45)
[2020-04-28] MEDS: ENOXAPARIN 60MG/0.6ML SYR SUBCUT SCH ×2 (08:46→09:00)
[2020-04-28] MEDS: BUDESONIDE 0.5MG/2ML NEB HHN SCH (08:47)
[2020-04-28] MEDS: IPRATROPIUM/ALBUTEROL 0.5-3(2.5)MG/3ML NEB NEB PRN (08:47)
[2020-04-28] MEDS ORDERED: LORAZEPAM 2MG/ML CPJ IV SCH (09:45)
[2020-04-28 09:51] LABS: BG BASE EXCESS -4.4 mmol/L (-2.0-2.0); BG CARBOXYHEMOGLOBIN 0.1 % (0.5-1.5); BG DEOXYHEMOGLOBIN 5.2 % (0.0-5.0); BG FRACTION INSPIRED OXYGEN 35; BG HCO3 ACT 19.9 mmol/L (22.0-26.0); BG METHEMOGLOBIN 0.3 % (0.0-1.5); BG OXYGEN SATURATION 94.8 % (92.0-98.5); BG OXYHEMOGLOBIN 94.4 % (94.0-97.0); BG PCO2 33.7 mmHg (35.0-45.0); BG PH 7.388 (7.350-7.450); BG PO2 80.5 mmHg (75.0-100.0); BG SAMPLE SITE RIGHT RADIAL; BG TIDAL VOLUME(mL) 500 mL; BG TOTAL HEMOGLOBIN 10.9 g/dL (12.0-18.0); BG VENT MODE VENT - A/C; BG VENT RATE 12 set
[2020-04-28] MEDS: INSULIN LISPRO 100 UNITS/ML SUBCUT SCH ×3 (11:27→21:00)
[2020-04-29] VITALS (80 sets, daily range): BP systolic 99–169; BP diastolic 62–118
[2020-04-29] MEDS: MORPHINE SULFATE 2 MG/ML CPJ (NOT FOR IM USE) IV PRN ×3 (03:42→23:32)
[2020-04-29 06:01] LABS: BASOPHILS % 0.2 % (0.0-2.0); HEMATOCRIT. 27.2 % (36.0-48.0); LYMPHOCYTES % 16.9 % (20.0-50.0); MEAN CORPUSCULAR HEMOGLOBIN 28.8 pg (28.0-32.0); MEAN CORPUSCULAR VOLUME 86.8 fL (81.0-99.0); MEAN PLATELET VOLUME 9.4 fl (7.4-10.4); MONOCYTES % 10.7 % (2.0-8.0); NEUTROPHILS % 71.2 % (40.0-76.0); PLATELET 160 x1000/uL (130-400); RED BLOOD CELL COUNT 3.14 mill/uL (4.2-5.4); RED CELL DISTRIBUTION WIDTH 16.9 % (11.6-14.6)
[2020-04-29] MEDS: BLOOD SUGAR DIAGNOSTIC STRIP TEST SCH ×4 (06:21→21:05)
[2020-04-29] MEDS: INSULIN LISPRO 100 UNITS/ML SUBCUT SCH ×4 (06:21→21:00)
[2020-04-29] MEDS: MIDODRINE HCL 5MG TABLET PO SCH ×3 (06:24→21:09)
[2020-04-29] MEDS: PANTOPRAZOLE SODIUM 40 MG/VIAL IV SCH (08:56)
[2020-04-29] MEDS: ENOXAPARIN 60MG/0.6ML SYR SUBCUT SCH (08:57)
[2020-04-29] MEDS: CARVEDILOL 3.125 MG TABLET PO SCH ×2 (12:55→21:09)
[2020-04-29 17:07] LABS: BG BASE EXCESS -5.3 mmol/L (-2.0-2.0); BG CARBOXYHEMOGLOBIN 0.3 % (0.5-1.5); BG DEOXYHEMOGLOBIN 14.2 % (0.0-5.0); BG FRACTION INSPIRED OXYGEN 35; BG HCO3 ACT 20.9 mmol/L (22.0-26.0); BG METHEMOGLOBIN 0.2 % (0.0-1.5); BG OXYGEN SATURATION 85.7 % (92.0-98.5); BG OXYHEMOGLOBIN 85.3 % (94.0-97.0); BG PH 7.295 (7.350-7.450); BG PO2 61.4 mmHg (75.0-100.0); BG PRESSURE SUPPORT 8; BG SAMPLE SITE RIGHT RADIAL; BG TOTAL HEMOGLOBIN 10.5 g/dL (12.0-18.0); BG VENT MODE VENT - CPAP
[2020-04-29] MEDS: LORAZEPAM 2MG/ML CPJ IV PRN (18:33)
[2020-04-30] VITALS (61 sets, daily range): BP systolic 98–146; BP diastolic 58–83
[2020-04-30] MEDS: BLOOD SUGAR DIAGNOSTIC STRIP TEST SCH ×4 (05:34→22:10)
[2020-04-30] MEDS: INSULIN LISPRO 100 UNITS/ML SUBCUT SCH ×4 (05:36→22:10)
[2020-04-30] MEDS: MIDODRINE HCL 5MG TABLET PO SCH ×3 (05:37→22:23)
[2020-04-30 05:53] LABS: BASOPHILS % 0.2 % (0.0-2.0); EOSINOPHILS % 0.8 % (0.0-5.0); HEMATOCRIT. 27.3 % (36.0-48.0); LYMPHOCYTES % 22.3 % (20.0-50.0); MEAN CORPUSCULAR HEMOGLOBIN 28.6 pg (28.0-32.0); MEAN CORPUSCULAR VOLUME 86.5 fL (81.0-99.0); MEAN PLATELET VOLUME 10.1 fl (7.4-10.4); MONOCYTES % 11.4 % (2.0-8.0); NEUTROPHILS % 65.3 % (40.0-76.0); PLATELET 183 x1000/uL (130-400); RED BLOOD CELL COUNT 3.16 mill/uL (4.2-5.4); RED CELL DISTRIBUTION WIDTH 16.7 % (11.6-14.6)
[2020-04-30] MEDS: MORPHINE SULFATE 2 MG/ML CPJ (NOT FOR IM USE) IV PRN ×3 (06:30→20:45)
[2020-04-30] MEDS: CARVEDILOL 3.125 MG TABLET PO SCH ×2 (08:09→21:00)
[2020-04-30] MEDS: ENOXAPARIN 60MG/0.6ML SYR SUBCUT SCH (08:09)
[2020-04-30] MEDS: PANTOPRAZOLE SODIUM 40 MG/VIAL IV SCH (08:09)
[2020-04-30] MEDS: LORAZEPAM 2MG/ML CPJ IV PRN ×3 (10:01→23:50)
[2020-05-01] VITALS (49 sets, daily range): BP systolic 98–133; BP diastolic 54–101
[2020-05-01 05:47] LABS: BASOPHILS % 0.3 % (0.0-2.0); EOSINOPHILS % 0.5 % (0.0-5.0); HEMATOCRIT. 27.3 % (36.0-48.0); HEMOGLOBIN. 8.9 g/dL (12.0-16.0); LYMPHOCYTES % 18.9 % (20.0-50.0); MEAN CORPUSCULAR HEMOGLOBIN 28.4 pg (28.0-32.0); MEAN CORPUSCULAR VOLUME 87.1 fL (81.0-99.0); MEAN PLATELET VOLUME 9.5 fl (7.4-10.4); MONOCYTES % 10.6 % (2.0-8.0); NEUTROPHILS % 69.7 % (40.0-76.0); PLATELET 193 x1000/uL (130-400); RED BLOOD CELL COUNT 3.13 mill/uL (4.2-5.4); RED CELL DISTRIBUTION WIDTH 16.8 % (11.6-14.6)
[2020-05-01] MEDS: MIDODRINE HCL 5MG TABLET PO SCH ×3 (06:00→21:34)
[2020-05-01] MEDS: INSULIN LISPRO 100 UNITS/ML SUBCUT SCH ×4 (06:29→21:00)
[2020-05-01] MEDS: BLOOD SUGAR DIAGNOSTIC STRIP TEST SCH ×4 (06:30→21:00)
[2020-05-01] MEDS: MORPHINE SULFATE 2 MG/ML CPJ (NOT FOR IM USE) IV PRN ×3 (06:47→17:52)
[2020-05-01 07:52] LABS: BG BASE EXCESS 1.3 mmol/L (-2.0-2.0); BG CARBOXYHEMOGLOBIN 0.6 % (0.5-1.5); BG DEOXYHEMOGLOBIN 1.9 % (0.0-5.0); BG HCO3 ACT 25.8 mmol/L (22.0-26.0); BG METHEMOGLOBIN 0.3 % (0.0-1.5); BG OXYGEN SATURATION 98.1 % (92.0-98.5); BG OXYHEMOGLOBIN 97.2 % (94.0-97.0); BG PH 7.427 (7.350-7.450); BG PO2 115.6 mmHg (75.0-100.0); BG SAMPLE SITE RIGHT RADIAL; BG TIDAL VOLUME(mL) 500 mL; BG TOTAL HEMOGLOBIN 7.8 g/dL (12.0-18.0); BG VENT MODE VENT - A/C; BG VENT RATE 12 set
[2020-05-01] MEDS: PANTOPRAZOLE SODIUM 40 MG/VIAL IV SCH (08:01)
[2020-05-01] MEDS: CARVEDILOL 3.125 MG TABLET PO SCH ×2 (08:02→21:34)
[2020-05-01] MEDS: ENOXAPARIN 60MG/0.6ML SYR SUBCUT SCH (08:02)
[2020-05-01 09:58] LABS: BG BASE EXCESS -1.3 mmol/L (-2.0-2.0); BG CARBOXYHEMOGLOBIN 0.3 % (0.5-1.5); BG DEOXYHEMOGLOBIN 1.6 % (0.0-5.0); BG FRACTION INSPIRED OXYGEN 40; BG HCO3 ACT 22.7 mmol/L (22.0-26.0); BG METHEMOGLOBIN 0.4 % (0.0-1.5); BG OXYGEN SATURATION 98.4 % (92.0-98.5); BG OXYHEMOGLOBIN 97.7 % (94.0-97.0); BG PCO2 34.8 mmHg (35.0-45.0); BG PH 7.432 (7.350-7.450); BG PO2 139.5 mmHg (75.0-100.0); BG PRESSURE SUPPORT 8; BG SAMPLE SITE RIGHT RADIAL; BG TOTAL HEMOGLOBIN 8.5 g/dL (12.0-18.0); BG VENT MODE VENT - CPAP
[2020-05-01] MEDS ORDERED: LORAZEPAM 2MG/ML CPJ IV NR (10:41)
[2020-05-01] MEDS: LORAZEPAM 2MG/ML CPJ IV PRN ×2 (10:51→21:48)
[2020-05-02] VITALS (48 sets, daily range): BP systolic 109–138; BP diastolic 64–84
[2020-05-02 05:17] LABS: BASOPHILS % 0.4 % (0.0-2.0); EOSINOPHILS % 0.8 % (0.0-5.0); HEMATOCRIT. 25.4 % (36.0-48.0); HEMOGLOBIN. 8.3 g/dL (12.0-16.0); LYMPHOCYTES % 12.9 % (20.0-50.0); MEAN CORPUSCULAR HEMOGLOBIN 28.5 pg (28.0-32.0); MEAN PLATELET VOLUME 9.7 fl (7.4-10.4); MONOCYTES % 7.2 % (2.0-8.0); NEUTROPHILS % 78.7 % (40.0-76.0); PLATELET 246 x1000/uL (130-400); RED BLOOD CELL COUNT 2.92 mill/uL (4.2-5.4); RED CELL DISTRIBUTION WIDTH 16.7 % (11.6-14.6)
[2020-05-02] MEDS: MIDODRINE HCL 5MG TABLET PO SCH (06:06)
[2020-05-02] MEDS: BLOOD SUGAR DIAGNOSTIC STRIP TEST SCH ×4 (06:22→21:00)
[2020-05-02] MEDS: INSULIN LISPRO 100 UNITS/ML SUBCUT SCH ×4 (06:22→21:00)
[2020-05-02] MEDS: PANTOPRAZOLE SODIUM 40 MG/VIAL IV SCH (09:10)
[2020-05-02] MEDS: CARVEDILOL 3.125 MG TABLET PO SCH ×2 (09:11→21:14)
[2020-05-02] MEDS: ENOXAPARIN 60MG/0.6ML SYR SUBCUT SCH (09:12)
[2020-05-02] MEDS: MIDODRINE HCL 2.5MG TABLET PO SCH ×2 (14:05→21:14)
[2020-05-02] MEDS: LORAZEPAM 2MG/ML CPJ IV PRN (16:13)
[2020-05-03] VITALS (46 sets, daily range): BP systolic 95–168; BP diastolic 55–77
[2020-05-03] MEDS: MIDODRINE HCL 2.5MG TABLET PO SCH ×3 (05:39→21:32)
[2020-05-03 05:51] LABS: BASOPHILS % 0.2 % (0.0-2.0); EOSINOPHILS % 0.3 % (0.0-5.0); HEMATOCRIT. 25.4 % (36.0-48.0); HEMOGLOBIN. 8.2 g/dL (12.0-16.0); LYMPHOCYTES % 8.7 % (20.0-50.0); MEAN CORPUSCULAR HEMOGLOBIN 28.1 pg (28.0-32.0); MEAN CORPUSCULAR VOLUME 87.1 fL (81.0-99.0); MEAN PLATELET VOLUME 9.7 fl (7.4-10.4); MONOCYTES % 5.2 % (2.0-8.0); NEUTROPHILS % 85.6 % (40.0-76.0); PLATELET 280 x1000/uL (130-400); RED BLOOD CELL COUNT 2.92 mill/uL (4.2-5.4); RED CELL DISTRIBUTION WIDTH 17.2 % (11.6-14.6)
[2020-05-03] MEDS: INSULIN LISPRO 100 UNITS/ML SUBCUT SCH ×4 (06:10→21:00)
[2020-05-03] MEDS: BLOOD SUGAR DIAGNOSTIC STRIP TEST SCH ×4 (06:10→21:36)
[2020-05-03] MEDS: LORAZEPAM 2MG/ML CPJ IV PRN ×2 (06:43→22:42)
[2020-05-03 09:30] LABS: BG BASE EXCESS -1.8 mmol/L (-2.0-2.0); BG CARBOXYHEMOGLOBIN 0.3 % (0.5-1.5); BG DEOXYHEMOGLOBIN 1.6 % (0.0-5.0); BG HCO3 ACT 21.3 mmol/L (22.0-26.0); BG METHEMOGLOBIN 0.5 % (0.0-1.5); BG OXYGEN SATURATION 98.4 % (92.0-98.5); BG OXYHEMOGLOBIN 97.6 % (94.0-97.0); BG PH 7.455 (7.350-7.450); BG PO2 136.1 mmHg (75.0-100.0); BG SAMPLE SITE RIGHT RADIAL; BG TIDAL VOLUME(mL) 500 mL; BG TOTAL HEMOGLOBIN 11.3 g/dL (12.0-18.0); BG VENT MODE VENT - A/C; BG VENT RATE 12 set
[2020-05-03] MEDS: PANTOPRAZOLE SODIUM 40 MG/VIAL IV SCH (09:53)
[2020-05-03] MEDS: CARVEDILOL 3.125 MG TABLET PO SCH ×2 (09:53→21:31)
[2020-05-03] MEDS: ENOXAPARIN 60MG/0.6ML SYR SUBCUT SCH (09:54)
[2020-05-04] VITALS (46 sets, daily range): BP systolic 100–136; BP diastolic 52–87
[2020-05-04] MEDS: ACETAMINOPHEN 325MG TABLET PO PRN ×2 (02:34→21:11)
[2020-05-04 05:37] LABS: BASOPHILS % 0.1 % (0.0-2.0); EOSINOPHILS % 0.7 % (0.0-5.0); HEMATOCRIT. 25.3 % (36.0-48.0); HEMOGLOBIN. 8.2 g/dL (12.0-16.0); LYMPHOCYTES % 9.3 % (20.0-50.0); MEAN CORPUSCULAR HEMOGLOBIN 28.5 pg (28.0-32.0); MEAN CORPUSCULAR VOLUME 87.5 fL (81.0-99.0); MEAN PLATELET VOLUME 9.5 fl (7.4-10.4); NEUTROPHILS % 82.9 % (40.0-76.0); PLATELET 285 x1000/uL (130-400); RED BLOOD CELL COUNT 2.89 mill/uL (4.2-5.4); RED CELL DISTRIBUTION WIDTH 16.7 % (11.6-14.6)
[2020-05-04] MEDS: BLOOD SUGAR DIAGNOSTIC STRIP TEST SCH ×4 (05:54→21:24)
[2020-05-04] MEDS: MIDODRINE HCL 2.5MG TABLET PO SCH ×3 (05:54→21:19)
[2020-05-04] MEDS: INSULIN LISPRO 100 UNITS/ML SUBCUT SCH ×4 (06:06→21:00)
[2020-05-04 07:25] LABS: BG BASE EXCESS -2.8 mmol/L (-2.0-2.0); BG CARBOXYHEMOGLOBIN 0.3 % (0.5-1.5); BG DEOXYHEMOGLOBIN 1.9 % (0.0-5.0); BG HCO3 ACT 20.3 mmol/L (22.0-26.0); BG METHEMOGLOBIN 0.6 % (0.0-1.5); BG OXYGEN SATURATION 98.1 % (92.0-98.5); BG OXYHEMOGLOBIN 97.2 % (94.0-97.0); BG PCO2 28.7 mmHg (35.0-45.0); BG PH 7.468 (7.350-7.450); BG PO2 120.6 mmHg (75.0-100.0); BG SAMPLE SITE RIGHT BRACHIAL; BG TIDAL VOLUME(mL) 500 mL; BG TOTAL HEMOGLOBIN 8.3 g/dL (12.0-18.0); BG VENT MODE VENT - A/C; BG VENT RATE 12 set
[2020-05-04] MEDS: IPRATROPIUM/ALBUTEROL 0.5-3(2.5)MG/3ML NEB NEB PRN ×3 (08:21→16:18)
[2020-05-04] MEDS: LORAZEPAM 2MG/ML CPJ IV PRN (09:02)
[2020-05-04] MEDS: PANTOPRAZOLE SODIUM 40 MG/VIAL IV SCH (09:02)
[2020-05-04] MEDS: CARVEDILOL 3.125 MG TABLET PO SCH ×2 (09:03→21:19)
[2020-05-04] MEDS: ENOXAPARIN 60MG/0.6ML SYR SUBCUT SCH (09:11)
[2020-05-04] MEDS: MORPHINE SULFATE 2 MG/ML CPJ (NOT FOR IM USE) IV PRN ×3 (12:49→23:56)
[2020-05-05] VITALS (43 sets, daily range): BP systolic 96–165; BP diastolic 50–99
[2020-05-05] MEDS: MORPHINE SULFATE 2 MG/ML CPJ (NOT FOR IM USE) IV PRN ×2 (04:58→07:56)
[2020-05-05 05:09] LABS: BASOPHILS % 0.3 % (0.0-2.0); HEMATOCRIT. 25.6 % (36.0-48.0); HEMOGLOBIN. 8.5 g/dL (12.0-16.0); LYMPHOCYTES % 15.1 % (20.0-50.0); MEAN CORPUSCULAR HEMOGLOBIN 28.9 pg (28.0-32.0); MEAN PLATELET VOLUME 9.4 fl (7.4-10.4); MONOCYTES % 10.1 % (2.0-8.0); NEUTROPHILS % 73.5 % (40.0-76.0); PLATELET 337 x1000/uL (130-400); RED BLOOD CELL COUNT 2.94 mill/uL (4.2-5.4); RED CELL DISTRIBUTION WIDTH 17.2 % (11.6-14.6)
[2020-05-05] MEDS: MIDODRINE HCL 2.5MG TABLET PO SCH ×3 (05:37→21:34)
[2020-05-05] MEDS: BLOOD SUGAR DIAGNOSTIC STRIP TEST SCH ×4 (05:37→21:00)
[2020-05-05] MEDS: INSULIN LISPRO 100 UNITS/ML SUBCUT SCH ×4 (07:00→21:00)
[2020-05-05 07:56] LABS: BG BASE EXCESS 0.5 mmol/L (-2.0-2.0); BG CARBOXYHEMOGLOBIN 0.5 % (0.5-1.5); BG DEOXYHEMOGLOBIN 1.8 % (0.0-5.0); BG HCO3 ACT 24.7 mmol/L (22.0-26.0); BG METHEMOGLOBIN 0.5 % (0.0-1.5); BG OXYGEN SATURATION 98.2 % (92.0-98.5); BG OXYHEMOGLOBIN 97.2 % (94.0-97.0); BG PCO2 37.8 mmHg (35.0-45.0); BG PH 7.433 (7.350-7.450); BG PO2 109.9 mmHg (75.0-100.0); BG SAMPLE SITE RIGHT RADIAL; BG TIDAL VOLUME(mL) 500 mL; BG TOTAL HEMOGLOBIN 8.7 g/dL (12.0-18.0); BG VENT MODE VENT - A/C; BG VENT RATE 12 set
[2020-05-05] MEDS: ENOXAPARIN 60MG/0.6ML SYR SUBCUT SCH (08:21)
[2020-05-05] MEDS: PANTOPRAZOLE SODIUM 40 MG/VIAL IV SCH (08:29)
[2020-05-05] MEDS: CARVEDILOL 3.125 MG TABLET PO SCH ×2 (08:30→20:41)
[2020-05-05] MEDS: LORAZEPAM 2MG/ML CPJ IV PRN ×2 (08:42→13:07)
[2020-05-05] MEDS: PROPOFOL 10MG/ML 100ML 100 ML IV PRN (12:03)
[2020-05-05] MEDS ORDERED: LIDOCAINE HCL/PF 1% 2ML VIAL ONE (12:04)
[2020-05-05] MEDS: IPRATROPIUM/ALBUTEROL 0.5-3(2.5)MG/3ML NEB NEB PRN (14:05)
[2020-05-05 18:50] LABS: INR 1.1; PROTHROMBIN TIME 11.9 sec (9.6-11.0)
[2020-05-06] VITALS (86 sets, daily range): BP systolic 89–168; BP diastolic 48–94
[2020-05-06] MEDS: PROPOFOL 10MG/ML 100ML 100 ML IV PRN (01:04)
[2020-05-06] MEDS: MIDODRINE HCL 2.5MG TABLET PO SCH ×3 (06:00→21:34)
[2020-05-06] MEDS: BLOOD SUGAR DIAGNOSTIC STRIP TEST SCH ×4 (06:30→21:40)
[2020-05-06] MEDS: INSULIN LISPRO 100 UNITS/ML SUBCUT SCH ×4 (07:00→21:00)
[2020-05-06] MEDS: PANTOPRAZOLE SODIUM 40 MG/VIAL IV SCH (08:25)
[2020-05-06] MEDS: CARVEDILOL 3.125 MG TABLET PO SCH ×2 (08:25→20:34)
[2020-05-06 10:05] LABS: BASOPHILS % 0.4 % (0.0-2.0); EOSINOPHILS % 0.7 % (0.0-5.0); HEMATOCRIT. 23.5 % (36.0-48.0); HEMOGLOBIN. 7.7 g/dL (12.0-16.0); LYMPHOCYTES % 18.6 % (20.0-50.0); MEAN CORPUSCULAR HEMOGLOBIN 28.8 pg (28.0-32.0); MEAN CORPUSCULAR VOLUME 87.7 fL (81.0-99.0); MEAN PLATELET VOLUME 9.6 fl (7.4-10.4); MONOCYTES % 10.3 % (2.0-8.0); PLATELET 350 x1000/uL (130-400); RED BLOOD CELL COUNT 2.68 mill/uL (4.2-5.4); RED CELL DISTRIBUTION WIDTH 17.4 % (11.6-14.6)
[2020-05-06 10:13] LABS: INR 1.1; PROTHROMBIN TIME 11.2 sec (9.6-11.0)
[2020-05-06] MEDS ORDERED: PROPOFOL 10MG/ML 100ML 100 ML IV PRN ×2 (13:00→21:15)
[2020-05-06] MEDS: MORPHINE SULFATE 2 MG/ML CPJ (NOT FOR IM USE) IV PRN (20:34)
[2020-05-06 21:37] LABS: BG CARBOXYHEMOGLOBIN 0.3 % (0.5-1.5); BG DEOXYHEMOGLOBIN 7.6 % (0.0-5.0); BG FRACTION INSPIRED OXYGEN 60; BG HCO3 ACT 15.7 mmol/L (22.0-26.0); BG METHEMOGLOBIN 0.2 % (0.0-1.5); BG OXYGEN SATURATION 92.4 % (92.0-98.5); BG OXYHEMOGLOBIN 91.9 % (94.0-97.0); BG PCO2 33.7 mmHg (35.0-45.0); BG PH 7.286 (7.350-7.450); BG PO2 78.5 mmHg (75.0-100.0); BG SAMPLE SITE LEFT RADIAL; BG TIDAL VOLUME(mL) 500 mL; BG TOTAL HEMOGLOBIN 10.2 g/dL (12.0-18.0); BG VENT MODE VENT - A/C; BG VENT RATE 20 set
[2020-05-06] MEDS ORDERED: SODIUM BICARBONATE 8.4% 1 MEQ/ML 50ML SYR IV NR (22:00)
[2020-05-07] VITALS (59 sets, daily range): BP systolic 66–146; BP diastolic 35–80
[2020-05-07] MEDS: PHENYLEPHRINE 100 MG in DEXT 5% WATER 240 ML IV PRN (02:44)
[2020-05-07] MEDS: MIDODRINE HCL 2.5MG TABLET PO SCH ×2 (05:01→13:46)
[2020-05-07 05:41] LABS: BASOPHILS % 0.4 % (0.0-2.0); EOSINOPHILS % 0.2 % (0.0-5.0); HEMATOCRIT. 24.8 % (36.0-48.0); HEMOGLOBIN. 8.1 g/dL (12.0-16.0); LYMPHOCYTES % 16.9 % (20.0-50.0); MEAN CORPUSCULAR HEMOGLOBIN 28.3 pg (28.0-32.0); MEAN CORPUSCULAR VOLUME 86.7 fL (81.0-99.0); MEAN PLATELET VOLUME 9.3 fl (7.4-10.4); MONOCYTES % 11.4 % (2.0-8.0); NEUTROPHILS % 71.1 % (40.0-76.0); PLATELET 398 x1000/uL (130-400); RED BLOOD CELL COUNT 2.85 mill/uL (4.2-5.4); RED CELL DISTRIBUTION WIDTH 17.1 % (11.6-14.6)
[2020-05-07] MEDS: BLOOD SUGAR DIAGNOSTIC STRIP TEST SCH ×4 (06:51→21:00)
[2020-05-07] MEDS: INSULIN LISPRO 100 UNITS/ML SUBCUT SCH ×4 (06:51→20:37)
[2020-05-07] MEDS: PANTOPRAZOLE SODIUM 40 MG/VIAL IV SCH (08:25)
[2020-05-07] MEDS: CARVEDILOL 3.125 MG TABLET PO SCH ×2 (08:26→20:37)
[2020-05-07] MEDS: LORAZEPAM 2MG/ML CPJ IV PRN ×2 (08:26→17:53)
[2020-05-07 09:32] LABS: BG BASE EXCESS 0.3 mmol/L (-2.0-2.0); BG CARBOXYHEMOGLOBIN 0.2 % (0.5-1.5); BG DEOXYHEMOGLOBIN 0.8 % (0.0-5.0); BG FRACTION INSPIRED OXYGEN 60; BG HCO3 ACT 24.1 mmol/L (22.0-26.0); BG METHEMOGLOBIN 0.4 % (0.0-1.5); BG OXYGEN SATURATION 99.2 % (92.0-98.5); BG OXYHEMOGLOBIN 98.6 % (94.0-97.0); BG PCO2 34.7 mmHg (35.0-45.0); BG PH 7.459 (7.350-7.450); BG PO2 196.9 mmHg (75.0-100.0); BG SAMPLE SITE LEFT BRACHIAL; BG TIDAL VOLUME(mL) 500 mL; BG TOTAL HEMOGLOBIN 6.6 g/dL (12.0-18.0); BG VENT MODE VENT - A/C; BG VENT RATE 20 set
[2020-05-07] MEDS: MORPHINE SULFATE 2 MG/ML CPJ (NOT FOR IM USE) IV PRN (12:40)
[2020-05-07] MEDS: QUETIAPINE FUMARATE 25MG TABLET PO SCH ×2 (12:45→20:37)
[2020-05-08] VITALS (9 sets, daily range): BP systolic 113–145; BP diastolic 63–109
[2020-05-08] MEDS: DIPHENHYDRAMINE 50MG/ML VIAL IV PRN (02:24)
[2020-05-08] MEDS: MIDODRINE HCL 2.5MG TABLET PO SCH (06:00)
[2020-05-08 06:19] LABS: BASOPHILS % 0.5 % (0.0-2.0); EOSINOPHILS % 0.4 % (0.0-5.0); HEMATOCRIT. 23.9 % (36.0-48.0); HEMOGLOBIN. 7.8 g/dL (12.0-16.0); LYMPHOCYTES % 16.7 % (20.0-50.0); MEAN CORPUSCULAR HEMOGLOBIN 28.1 pg (28.0-32.0); MEAN CORPUSCULAR VOLUME 86.3 fL (81.0-99.0); MEAN PLATELET VOLUME 9.3 fl (7.4-10.4); MONOCYTES % 13.9 % (2.0-8.0); NEUTROPHILS % 68.5 % (40.0-76.0); PLATELET 383 x1000/uL (130-400); RED BLOOD CELL COUNT 2.77 mill/uL (4.2-5.4); RED CELL DISTRIBUTION WIDTH 17.3 % (11.6-14.6)
[2020-05-08] MEDS: BLOOD SUGAR DIAGNOSTIC STRIP TEST SCH ×4 (07:30→21:23)
[2020-05-08] MEDS: INSULIN LISPRO 100 UNITS/ML SUBCUT SCH ×4 (08:00→21:00)
[2020-05-08] MEDS: QUETIAPINE FUMARATE 25MG TABLET PO SCH ×2 (09:38→21:23)
[2020-05-08] MEDS: PANTOPRAZOLE SODIUM 40 MG/VIAL IV SCH (09:39)
[2020-05-08] MEDS: CARVEDILOL 6.25 MG TABLET PO SCH ×2 (09:39→21:22)
[2020-05-08 09:58] LABS: BG BASE EXCESS -1.3 mmol/L (-2.0-2.0); BG CARBOXYHEMOGLOBIN 0.3 % (0.5-1.5); BG DEOXYHEMOGLOBIN 0.9 % (0.0-5.0); BG FRACTION INSPIRED OXYGEN 50; BG HCO3 ACT 22.2 mmol/L (22.0-26.0); BG OXYGEN SATURATION 99.1 % (92.0-98.5); BG OXYHEMOGLOBIN 98.8 % (94.0-97.0); BG PCO2 31.7 mmHg (35.0-45.0); BG PH 7.463 (7.350-7.450); BG PO2 166.6 mmHg (75.0-100.0); BG SAMPLE SITE RIGHT RADIAL; BG TIDAL VOLUME(mL) 500 mL; BG TOTAL HEMOGLOBIN 7.9 g/dL (12.0-18.0); BG VENT MODE VENT - A/C; BG VENT RATE 14 set
[2020-05-08] MEDS: AZITHROMYCIN 500 MG TABLET NG SCH (13:41)
[2020-05-09] VITALS (12 sets, daily range): BP systolic 106–141; BP diastolic 58–78
[2020-05-09] MEDS: LORAZEPAM 2MG/ML CPJ IV PRN ×4 (01:18→21:13)
[2020-05-09 06:40] LABS: EOSINOPHILS % 0.7 % (0.0-5.0); HEMATOCRIT. 25.8 % (36.0-48.0); HEMOGLOBIN. 8.4 g/dL (12.0-16.0); LYMPHOCYTES % 19.1 % (20.0-50.0); MEAN CORPUSCULAR HEMOGLOBIN 28.3 pg (28.0-32.0); MEAN CORPUSCULAR VOLUME 86.7 fL (81.0-99.0); MONOCYTES % 14.4 % (2.0-8.0); NEUTROPHILS % 64.8 % (40.0-76.0); PLATELET 427 x1000/uL (130-400); RED BLOOD CELL COUNT 2.97 mill/uL (4.2-5.4); RED CELL DISTRIBUTION WIDTH 17.2 % (11.6-14.6)
[2020-05-09] MEDS: BLOOD SUGAR DIAGNOSTIC STRIP TEST SCH ×4 (07:30→21:12)
[2020-05-09] MEDS: INSULIN LISPRO 100 UNITS/ML SUBCUT SCH ×4 (08:00→21:00)
[2020-05-09] MEDS: PANTOPRAZOLE SODIUM 40 MG/VIAL IV SCH (08:27)
[2020-05-09] MEDS: CARVEDILOL 6.25 MG TABLET PO SCH ×2 (08:28→21:13)
[2020-05-09] MEDS: QUETIAPINE FUMARATE 25MG TABLET PO SCH ×2 (08:32→09:00)
[2020-05-09] MEDS: AZITHROMYCIN 500 MG TABLET NG SCH ×2 (08:32→09:00)
[2020-05-09] MEDS ORDERED: CEFAZOLIN 500 MG in DEXTROSE 5% WATER 50 ML IV SCH (13:00)
[2020-05-09] MEDS ORDERED: MIDAZOLAM HCL 5 MG/5 ML VIAL ONE ×2 (13:16→13:17)
[2020-05-09] MEDS ORDERED: FENTANYL CITRATE/PF 50MCG/ML 2ML VIAL ONE (13:17)
[2020-05-09] MEDS ORDERED: MIDAZOLAM HCL 5 MG/5 ML VIAL IV PRN (13:32)
[2020-05-09] MEDS: DEXT 5%/0.45% NACL 1000ML 1,000 ML IV SCH (16:16)
[2020-05-09] MEDS: DIPHENHYDRAMINE 50MG/ML VIAL IV PRN (22:17)
[2020-05-10] VITALS (12 sets, daily range): BP systolic 107–132; BP diastolic 61–79
[2020-05-10 06:11] LABS: BASOPHILS % 0.4 % (0.0-2.0); EOSINOPHILS % 0.8 % (0.0-5.0); HEMATOCRIT. 26.7 % (36.0-48.0); HEMOGLOBIN. 8.7 g/dL (12.0-16.0); LYMPHOCYTES % 18.8 % (20.0-50.0); MEAN CORPUSCULAR HEMOGLOBIN 28.2 pg (28.0-32.0); MEAN CORPUSCULAR VOLUME 86.8 fL (81.0-99.0); MONOCYTES % 11.3 % (2.0-8.0); NEUTROPHILS % 68.7 % (40.0-76.0); PLATELET 440 x1000/uL (130-400); RED BLOOD CELL COUNT 3.08 mill/uL (4.2-5.4); RED CELL DISTRIBUTION WIDTH 17.3 % (11.6-14.6)
[2020-05-10 07:03] LABS: PHOSPHORUS 3.5 mg/dL (2.5-4.9)
[2020-05-10] MEDS: INSULIN LISPRO 100 UNITS/ML SUBCUT SCH ×4 (08:00→21:00)
[2020-05-10] MEDS: BLOOD SUGAR DIAGNOSTIC STRIP TEST SCH ×4 (08:11→21:26)
[2020-05-10] MEDS: AZITHROMYCIN 500 MG TABLET NG SCH (09:21)
[2020-05-10] MEDS: PANTOPRAZOLE SODIUM 40 MG/VIAL IV SCH (09:24)
[2020-05-10] MEDS: CARVEDILOL 6.25 MG TABLET PO SCH ×2 (09:24→21:26)
[2020-05-10] MEDS: DEXT 5%/0.45% NACL 1000ML 1,000 ML IV SCH (15:14)
[2020-05-10] MEDS: IPRATROPIUM/ALBUTEROL 0.5-3(2.5)MG/3ML NEB NEB PRN (19:51)
[2020-05-11] VITALS (12 sets, daily range): BP systolic 103–141; BP diastolic 51–80
[2020-05-11] MEDS: IPRATROPIUM/ALBUTEROL 0.5-3(2.5)MG/3ML NEB NEB PRN ×2 (00:07→04:14)
[2020-05-11] MEDS: DIPHENHYDRAMINE 50MG/ML VIAL IV PRN ×3 (00:47→21:23)
[2020-05-11 05:58] LABS: BASOPHILS % 0.5 % (0.0-2.0); EOSINOPHILS % 1.2 % (0.0-5.0); HEMATOCRIT. 25.3 % (36.0-48.0); HEMOGLOBIN. 8.3 g/dL (12.0-16.0); LYMPHOCYTES % 18.6 % (20.0-50.0); MEAN CORPUSCULAR HEMOGLOBIN 28.3 pg (28.0-32.0); MEAN CORPUSCULAR VOLUME 86.4 fL (81.0-99.0); MEAN PLATELET VOLUME 9.1 fl (7.4-10.4); MONOCYTES % 11.4 % (2.0-8.0); NEUTROPHILS % 68.3 % (40.0-76.0); PLATELET 422 x1000/uL (130-400); RED BLOOD CELL COUNT 2.93 mill/uL (4.2-5.4); RED CELL DISTRIBUTION WIDTH 17.4 % (11.6-14.6)
[2020-05-11] MEDS: BLOOD SUGAR DIAGNOSTIC STRIP TEST SCH ×4 (07:30→21:23)
[2020-05-11] MEDS: INSULIN LISPRO 100 UNITS/ML SUBCUT SCH ×4 (08:00→21:00)
[2020-05-11] MEDS: AZITHROMYCIN 500 MG TABLET NG SCH (08:20)
[2020-05-11] MEDS: CARVEDILOL 6.25 MG TABLET PO SCH ×2 (08:20→21:23)
[2020-05-11] MEDS: PANTOPRAZOLE SODIUM 40 MG/VIAL IV SCH (08:30)
[2020-05-11] MEDS: ACETAMINOPHEN 325MG TABLET PO PRN (13:46)
[2020-05-11] MEDS: DEXT 5%/0.45% NACL 1000ML 1,000 ML IV SCH (14:50)
[2020-05-11] MEDS: LORAZEPAM 2MG/ML CPJ IV PRN ×2 (17:50→23:03)
[2020-05-12] VITALS (11 sets, daily range): BP systolic 97–124; BP diastolic 53–70
[2020-05-12 06:21] LABS: BASOPHILS % 0.4 % (0.0-2.0); EOSINOPHILS % 1.2 % (0.0-5.0); HEMATOCRIT. 27.3 % (36.0-48.0); MEAN CORPUSCULAR HEMOGLOBIN 28.6 pg (28.0-32.0); MEAN CORPUSCULAR VOLUME 87.2 fL (81.0-99.0); MEAN PLATELET VOLUME 8.7 fl (7.4-10.4); MONOCYTES % 12.5 % (2.0-8.0); NEUTROPHILS % 67.9 % (40.0-76.0); PLATELET 362 x1000/uL (130-400); RED BLOOD CELL COUNT 3.13 mill/uL (4.2-5.4); RED CELL DISTRIBUTION WIDTH 17.4 % (11.6-14.6)
[2020-05-12] MEDS: BLOOD SUGAR DIAGNOSTIC STRIP TEST SCH ×4 (07:30→20:51)
[2020-05-12] MEDS: INSULIN LISPRO 100 UNITS/ML SUBCUT SCH ×4 (08:00→20:51)
[2020-05-12] MEDS: PANTOPRAZOLE SODIUM 40 MG/VIAL IV SCH (09:16)
[2020-05-12] MEDS: CARVEDILOL 6.25 MG TABLET PO SCH ×2 (09:16→20:51)
[2020-05-12] MEDS: AZITHROMYCIN 500 MG TABLET NG SCH (09:16)
[2020-05-12] MEDS: ACETAMINOPHEN 325MG TABLET PO PRN (11:25)
[2020-05-12] MEDS: HYDROCODONE/ACETAMINOPHEN 10/325MG TABLET GT PRN ×2 (12:55→18:10)
== END 2020-05-12 22:14 | DRG 3 ==
LOC: ER 02:20 → MICUSO 05:45 → EDBEDREQTM 05:50 → EDBEDREQ 05:50 → MICUSO 04-24 08:02 → MICUNO 04-24 19:00 → 5EST 05-07 14:45
PROVIDERS: ADMIT Internal Medicine; ATTEND Internal Medicine
PROC: 5A1955Z Respiratory Ventilation, Greater than 96 Consecutive Hours (ICD-10-PCS; principal; 2020-04-23)
PROC: 06HY33Z Insertion of Infusion Device into Lower Vein, Percutaneous Approach (ICD-10-PCS; 2020-04-23)
PROC: 5A09357 Assistance with Respiratory Ventilation, Less than 24 Consecutive Hours, Continuous Positive Airway Pressure (ICD-10-PCS; 2020-04-23)
PROC: 0BH17EZ Insertion of Endotracheal Airway into Trachea, Via Natural or Artificial Opening (ICD-10-PCS; 2020-04-23)
PROC: 4A00X4Z Measurement of Central Nervous Electrical Activity, External Approach (ICD-10-PCS; 2020-04-29)
PROC: 0B113F4 Bypass Trachea to Cutaneous with Tracheostomy Device, Percutaneous Approach (ICD-10-PCS; 2020-05-06)
PROC: 0GBJ3ZZ Excision of Thyroid Gland Isthmus, Percutaneous Approach (ICD-10-PCS; 2020-05-06)
PROC: 0DH68UZ Insertion of Feeding Device into Stomach, Via Natural or Artificial Opening Endoscopic (ICD-10-PCS; 2020-05-09)
DX: A41.9 Sepsis, unspecified organism (principal); J96.01 Acute respiratory failure with hypoxia; N17.0 Acute kidney failure with tubular necrosis; R65.21 Severe sepsis with septic shock; I50.23 Acute on chronic systolic (congestive) heart failure; J69.0 Pneumonitis due to inhalation of food and vomit; I46.9 Cardiac arrest, cause unspecified; E43 Unspecified severe protein-calorie malnutrition; G93.41 Metabolic encephalopathy; E87.0 Hyperosmolality and hypernatremia; I42.0 Dilated cardiomyopathy; G93.1 Anoxic brain damage, not elsewhere classified; C15.9 Malignant neoplasm of esophagus, unspecified; Z99.11 Dependence on respirator [ventilator] status; J44.1 Chronic obstructive pulmonary disease with (acute) exacerbation; J44.0 Chronic obstructive pulmonary disease with (acute) lower respiratory infection; I48.92 Unspecified atrial flutter; D68.9 Coagulation defect, unspecified; I13.0 Hypertensive heart and chronic kidney disease with heart failure and stage 1 through stage 4 chronic kidney disease, or unspecified chronic kidney disease; E87.1 Hypo-osmolality and hyponatremia; E87.2 Acidosis; A04.5 Campylobacter enteritis; F10.10 Alcohol abuse, uncomplicated; N18.9 Chronic kidney disease, unspecified; I27.21 Secondary pulmonary arterial hypertension; I25.10 Atherosclerotic heart disease of native coronary artery without angina pectoris; K22.2 Esophageal obstruction; E78.5 Hyperlipidemia, unspecified; Y90.9 Presence of alcohol in blood, level not specified; G89.4 Chronic pain syndrome; I25.5 Ischemic cardiomyopathy; K44.9 Diaphragmatic hernia without obstruction or gangrene; K29.70 Gastritis, unspecified, without bleeding; L89.156 Pressure-induced deep tissue damage of sacral region; M47.9 Spondylosis, unspecified; M48.02 Spinal stenosis, cervical region; Z20.828 Contact with and (suspected) exposure to other viral communicable diseases; I44.7 Left bundle-branch block, unspecified; I34.0 Nonrheumatic mitral (valve) insufficiency; I36.1 Nonrheumatic tricuspid (valve) insufficiency; I48.91 Unspecified atrial fibrillation; D63.8 Anemia in other chronic diseases classified elsewhere; R13.10 Dysphagia, unspecified; R00.0 Tachycardia, unspecified; E87.8 Other disorders of electrolyte and fluid balance, not elsewhere classified; Z85.01 Personal history of malignant neoplasm of esophagus; Z87.11 Personal history of peptic ulcer disease; Z92.3 Personal history of irradiation; Z72.0 Tobacco use; Z68.20 Body mass index [BMI] 20.0-20.9, adult; Z78.1 Physical restraint status; F15.10 Other stimulant abuse, uncomplicated
CPT/HCPCS: 36415; 36600; 70551; 71045; 72141; 80048; 80053; 80061; 80202; 80305; 81003; 82040; 82150; 82330; 82375; 82533; 82550; 82805; 82962; 83036; 83605; 83735; 83880; 84100; 84134; 84439; 84443; 84478; 84484; 84702; 85025; 85027; 87015; 87045; 87426; 87427; 87449; 87635; 93005; 93306; 94002; 94003; 94640; 94660; 95816; 99291; C9113; J0456; J0461; J0690; J0696; J1100; J1200; J1265; J1650; J1815; J1940; J2060; J2250; J2270; J2370; J2405; J2543; J2704; J3010; J3370; J3475; J3480; J3490; J7042; J7050; J7060; J7626; P9041; P9047